=== PATIENT | female | born 1945 | race Caucasian/White ===

== ENCOUNTER → 2023-08-29 12:43 | Outpatient (REF) | payer OTHER, SELFPAY | LOC: RAD 12:43 | PROVIDERS: ATTENDING PHYSICIAN Surgery Vascular Surgery; FAMILY PHYSICIAN Family Medicine | DX: I77.3 Arterial fibromuscular dysplasia (principal) | CPT/HCPCS: 74174; Q9967 ==

== ENCOUNTER → 2024-03-10 11:00 | Outpatient (REF) | payer OTHER, SELFPAY | LOC: WDC 11:00 | PROVIDERS: ATTENDING PHYSICIAN Family Medicine | DX: Z12.31 Encounter for screening mammogram for malignant neoplasm of breast (principal) | CPT/HCPCS: 77063; 77067 ==

== ENCOUNTER → 2024-04-21 10:33 | Outpatient (REF) | payer OTHER, SELFPAY | LOC: RAD 10:33 | PROVIDERS: ATTENDING PHYSICIAN Internal Medicine Rheumatology; FAMILY PHYSICIAN Family Medicine | DX: E55.9 Vitamin D deficiency, unspecified (principal); M47.816 Spondylosis without myelopathy or radiculopathy, lumbar region; M81.0 Age-related osteoporosis without current pathological fracture | CPT/HCPCS: 77080 ==

== ENCOUNTER 2024-06-19 06:59 | Day surgery (SDC) | payer OTHER, SELFPAY ==
[2024-06-19 07:34] VITALS: BP 128/67
[2024-06-19 07:43] VITALS: BP 128/67
[2024-06-19 08:02] VITALS: BMI 26.7
[2024-06-19 08:15] LABS: Hematocrit 42.8 % (37.0-47.0); Hemoglobin 14.3 g/dL (12.0-16.0); Mean Corp Hgb Conc. 33.4 g/dL (33.0-37.0); Mean Corpuscular Hgb 31.4 pg (27.0-31.0); Mean Corpuscular Volume 94.1 fL (81.0-99.0); Mean Platelet Volume 9.4 fL (7.4-10.4); Platelet Count 278 10^3/uL (130-400); Red Blood Cell Count 4.55 10^6/uL (4.20-5.40); Red Cell Dist. Width 13.6 % (11.5-14.5); White Blood Cell Count 19.5 10^3/uL (4.8-10.8)
--- NOTE | 2024-06-19 08:41 | W.SUR.PREOP ---
Pre-Operative Surgical Note
-
I have examined this patient prior to the performance of the scheduled procedure.
The patient's condition is unchanged from the time of the current History and
Physical and the patient is able to undergo the scheduled procedure.
[2024-06-19 08:44] LABS: APTT 25.7 Sec (23.4-35.0); INR 0.85; PT 11.9 Sec (11.4-14.6)
--- NOTE | 2024-06-19 09:34 | OR.RPT ---
Operative Report
Operative Report
Date of Operation: 06/19/2024
Pre Op Diagnosis:
1.) jaw claudication
2.) elevated inflammatory markers
3.) concern for temporal arteritis
Post Op Diagnosis:
1.) jaw claudication
2.) elevated inflammatory markers
3.) concern for temporal arteritis
Procedure: BILATERAL temporal artery biopsy
Surgeon: Frank Wolf III, MD
[employer]: Bong Jeffries MD PhD, PGY2
Anesthesia: Sedation/local
Complications: None
Estimated Blood Loss: Less than 10 cc
History and Indications for Procedure: 78-year-old female with symptom constellation raising concern for temporal arteritis. We were asked to provide a temporal artery biopsy.
Procedure in Detail: Jessie Guillen was correctly identified and placed supine on the operating table. After adequate induction of anesthesia, the bilateral temporal pulses were marked and then the temporal regions were prepped and draped in the
usual sterile fashion. Preoperative antibiotics were administered. A time-out procedure was performed with the nursing and anesthesia staff confirming the patient's identity as well as nature and bilaterality of the procedure. Incisions were made
over the marked temporal pulses bilaterally. Careful sharp dissection and electrocautery were used to dissect down to the temporal arteries bilaterally. Adequate length of specimen was then sharply dissected out and the proximal and distal arteries
were ligated with silk ties and small metal clips. The intervening segment of each artery was then removed after ligating the proximal and distal ends. Each artery segment was identified appropriately according to laterality and then passed off to
the back table to be sent to pathology individually. Hemostasis was then achieved within the wound beds bilaterally. The wounds were irrigated with warm saline solution. The wounds were then closed in layers and skin glue was applied. The patient
tolerated the procedure well and was taken to the recovery room in good condition.
Attestation: I was present and responsible for the entire procedure.
Signed:
Frank Wolf III, MD
[facility] Vascular Surgery
[phone] (higk)
[2024-06-19 09:40] VITALS: BP 115/73; BP 128/67
[2024-06-19 09:43] VITALS: BP 115/73
[2024-06-19 09:45] VITALS: BP 128/64
--- NOTE | 2024-06-19 09:45 | W.IMMPOSTOP ---
Surgical Immed Post Op Note
-
Primary Surgeon: Dr. Frank Wolf III, MD
Assisting Surgeon: Bong Jeffries MD, PhD (PGY-2)
Pre-op Diagnosis: Suspected temporal arteritis
Post-op Diagnosis: Suspected temporal arteritis
Procedure Performed: Bilateral temporal artery biopsy
Anesthesia Type: MAC
Specimen / Cultures: Right and left temporal artery specimens
Estimated Blood Loss: 10cc
Complications: None
Operative Findings: The patient was brought to the OR, prepped and draped in usual sterile fashion. Doppler was initially used to identify the course of the temporal artery bilaterally, this course was marked at the skin level. Local anesthetic was
injected near the incision sites bilaterally. Incisions were made and a combination of electrocautery and sharp dissection was used to expose the temporal artery bilaterally. Silk ties and small clips were used to isolate and ligate the artery. A
~2cm segment of artery was excised bilaterally. Wound beds were irrigated, hemostasis ensured, and the wounds were closed with 3-0 and 4-0 sutures and skin glue on the surface. The patient was transported to the PACU in stable condition.
[2024-06-19 10:11] VITALS: BP 126/67
== END 2024-06-19 11:11 | disposition home or self-care (01) ==
LOC: CATH 06:59
PROVIDERS: ATTENDING PHYSICIAN Surgery Vascular Surgery; FAMILY PHYSICIAN Family Medicine
DX: R51.9 Headache, unspecified (principal); I73.9 Peripheral vascular disease, unspecified; Z79.890 Hormone replacement therapy; Z79.52 Long term (current) use of systemic steroids; Z79.899 Other long term (current) drug therapy; N18.31 Chronic kidney disease, stage 3a
CPT/HCPCS: 37609; 88305; 85027; 85610; 85730; 88313; 93005

== ENCOUNTER → 2024-08-25 10:31 | Outpatient (REF) | payer OTHER, SELFPAY | LOC: RAD 10:31 | PROVIDERS: ATTENDING PHYSICIAN Surgery Vascular Surgery; FAMILY PHYSICIAN Family Medicine | DX: I72.2 Aneurysm of renal artery (principal) | CPT/HCPCS: 74174; Q9967 ==

== ENCOUNTER → 2024-10-20 10:41 | Outpatient (REF) | payer OTHER, SELFPAY | LOC: RAD 10:41 | PROVIDERS: ATTENDING PHYSICIAN Specialist; FAMILY PHYSICIAN Family Medicine | DX: M25.552 Pain in left hip (principal) | CPT/HCPCS: 73502 ==

== ENCOUNTER 2024-12-06 23:22 | Inpatient (IN) | payer OTHER, SELFPAY ==
[2024-12-06 20:42] VITALS: BP 138/84
[2024-12-06 21:00] VITALS: BP 133/71
[2024-12-06 21:04] VITALS: BMI 26.5
[2024-12-06 21:34] LABS: % Basophils 0.6 % (0-2); % Eosinophils 0.1 % (0-6); % Immature Granulocytes 0.7 % (0-0.5); % Lymphocytes 6.6 % (20.5-51.1); % Monocytes 6.9 % (1.7-9.3); % Neutrophils 85.1 % (42.2-75.2); Absolute Basophils 0.2 10^3/uL (0-0.2); Absolute Immature Granulocytes 0.2 10^3/uL (0-0.05); Absolute Lymphocytes 2.1 10^3/uL (1.2-3.4); Absolute Monocytes 2.2 10^3/uL (0.1-0.6); Absolute Neutrophils 27.5 10^3/uL (1.4-6.5); Hemoglobin 15.5 g/dL (12.0-16.0); Mean Corpuscular Volume 91.7 fL (81.0-99.0); Mean Platelet Volume 10.1 fL (7.4-10.4); Nucleated Red Blood Cells % 0 %; Platelet Count 129 10^3/uL (130-400); Red Blood Cell Count 4.69 10^6/uL (4.20-5.40); Red Cell Dist. Width 12.5 % (11.5-14.5); White Blood Cell Count 32.3 10^3/uL (4.8-10.8)
[2024-12-06] MEDS: NSS 1000 IV (21:35)
--- NOTE | 2024-12-06 21:40 | ED.GENMED ---
History of Present Illness
General
Chief Complaint: Abdominal Symptoms
Source: patient and family
Time Seen by Provider: 12/06/24 21:05
History of Present Illness
History of Present Illness:
This is 78-year-old female who presents with 3 days of vomiting. Patient states she was vomiting mostly in the evening. She is not sure what caused it but thought maybe she just had a GI bug. Today however she started with right flank pain.
Family/friend states that she seemed a little fatigued and was trying to drink fluids. Family states that they were trying to encourage oral intake of water. Patient denies dysuria.
Past History
Past History
ED Past Medical History: HTN and Other (Cataracts, skin cancer, temporal arteritis)
ED Past Surgical History: Gynecological
Social History
Tobacco: Non-smoker
Personal:
Living: with family
Phy Exam
Physical Exam
Physical Exam:
CONSTITUTIONAL Patient alert and oriented to person, place and time. Well-appearing. Vital signs reviewed.
HEAD atraumatic, normocephalic.
EYES eyelids normal to inspection, Extraocular muscles intact, Conjunctiva normal, Sclera normal.
NECK normal range of motion, Trachea midline, no jugular venous distention.
RESPIRATORY CHEST No respiratory distress noted, Chest expansion equal, Bilateral breath sounds clear.
CARDIOVASCULAR regular rate and rhythm, Heart sounds normal.
ABDOMEN abdomen nontender, Bowel sounds normal. No distention.
BACK normal inspection, no obvious deformities
UPPER EXTREMITY range of motion normal, Motor strength normal, no cyanosis, no edema.
LOWER EXTREMITY range of motion normal, Motor strength normal, no cyanosis, no edema.
NEURO Speech normal, No focal motor deficits, Aye coma scale 15, Memory normal, Cranial Nerves intact to screening exam.
SKIN skin warm, dry, and normal in color.
Course
Orders/Labs/Results
Orders:
Orders
12/06/24 20:51
IV Insert/Care/Rem.- Treatment PRN
12/06/24 21:01
Basic Metabolic Panel Urgent
Complete Blood Count/With Diff Urgent
Lipase Urgent
12/06/24 21:27
CT Abd/pel Without Iv Or Oral Urgent
Comment:
Reason For Exam: R flank pain, vomiting
0.9% Sodium Chloride 1000 ml [Nss] 1,000 ml IV BOLUS
12/06/24 21:31
Comprehensive Metabolic Panel Urgent
Urinalysis Reflex To Culture Urgent
Date Specimen was Collected: 12/06/24
Time Specimen was Collected: 20:51
Urine Microscopic Reflex Cult Urgent
Urine Culture Urgent
MAGDALENO Source: U
Specimen Description:
Date Specimen was Collected: 12/06/24
Time Specimen was Collected: 20:51
Abnormal Lab Results
12/06/24 12/06/24
21:01 21:31
WBC 32.3 H 10^3/uL
(4.8-10.8)
MCH 33.0 H pg
(27.0-31.0)
Plt Count 129 L 10^3/uL
(130-400)
Abs Immat Gran (auto) 0.2 H 10^3/uL
(0-0.05)
Absolute Neuts (auto) 27.5 H 10^3/uL
(1.4-6.5)
Absolute Monos (auto) 2.2 H 10^3/uL
(0.1-0.6)
Immature Gran % 0.7 H %
(0-0.5)
Neutrophils % 85.1 H %
(42.2-75.2)
Lymphocytes % 6.6 L %
(20.5-51.1)
Chloride 111 H mmol/L
(98-107)
BUN 30 H mg/dl 27 H mg/dl
(7-17) (7-17)
Creatinine 1.1 H mg/dL
(0.6-1.0)
Glucose 118 H mg/dl 112 H mg/dl
(70-99) (70-99)
AST 70 H U/L
(14-36)
ALT 86 H U/L
(0-35)
Total Protein 6.0 L g/dl
(6.3-8.2)
Lipase 604 H U/L
(23-300)
Urine Ketones 2+ A
(Negative)
Ur Occult Blood Reflex 4+ A
(Negative)
Leukocyte Esterase Rfl 2+ A
(Negative)
Urine RBC 11-15 A /HPF
(0-2)
Urine Bacteria (Reflex) Many A
(Negative)
Urine Albumin (Reflex) 2+ A
(Neg - Trace)
12/06/24 21:01
12/06/24 21:31
Vital Signs
Initial and Last Documented VS:
Initial Vital Signs
Temp Pulse Resp BP Pulse Ox
98 F 95 20 138/84 97
12/06/24 20:42 12/06/24 20:42 12/06/24 20:42 12/06/24 20:42 12/06/24 20:42
Last Documented Vital Signs
Temp Pulse Resp BP Pulse Ox
98 F 72 13 130/71 97
12/06/24 20:42 12/06/24 22:30 12/06/24 22:30 12/06/24 22:00 12/06/24 22:30
MDM/Problems Addressed
Differential Diagnosis Includes:
Pyelonephritis, gastroenteritis, colitis, cystitis
MDM/Problems Addressed:
Vomiting, liver mass
*Pulse Oximetry
Patient hypoxic: no
*Critical Care Note
Total Time (30-74mins, 75-104mins- exclusive of procedures): Not Applicable
Data Reviewed
Source: patient and family
Further Testing Considered But Not Given:
Considered contrast but initial question was whether or not she could have obstructive uropathy.
Patient Management
Discussion with other providers: Hospitalist
Escalation/DeEscalation of care consider admission/obs:
78-year-old female who presents with intractable vomiting over the last couple days and now flank pain. Found to have a significant leukocytosis. Question etiology. She has been on steroids for temporal arteritis. Also on infusion weekly.
Question whether this is a hematologic disorder versus marginalization from vomiting and dehydration versus related to steroids. Given her age and findings, admit for reassessment. CT does show a possible liver mass. May need repeat study
inclusive of contrast
ED Attending Note
-
Portions of this chart may have been created with voice recognition software.� Occasional wrong word or��sound alike� substitutions may have occurred due to the inherent limitations of voice recognition software.
Discharge Plan
Departure
Patient Disposition: Admit
Date of Disposition: 12/06/24
Time of Disposition: 22:22
Admit to: Med/Surg
Presentation/result/management discussed w/ accepting MD/DO: Hospitalist
Discharge Problem:
Leukocytosis, Vomiting, Liver mass, Dehydration
Prescriptions:
No Action
levothyroxine 137 mcg Tablet
137 mcg PO DAILY
calcium carbonate [Calcium 600] 600 mg calcium (1,500 mg) Tablet
600 mg PO BID
cholecalciferol (vitamin D3) [Vitamin D3] 25 mcg (1,000 unit) Tablet
75 mcg PO DAILY
Prolia 60 mg/mL Syringe
60 mg SC [id number]
prednisone 50 mg Tablet
50 mg PO DAILY
rosuvastatin 5 mg Tablet
5 mg PO DAILY
Referrals:
Kathy Gutierres MD [Family Provider] -
Interventions
Interventions:
*Risk Screen - Suicide Last Done: 12/06/24 20:44
*General Assessment Last Done: 12/06/24 20:44
*Neglect/Abuse Screening Last Done: 12/06/24 21:04
*ED- Fall Risk Assessment Last Done: 12/06/24 21:04
*ED COVID-19 Vaccine History Last Done: 12/06/24 20:44
JH-[id number]-[id number] Assessment Last Done: 12/06/24 21:04
Discharge Date and Time
Print Language: WELSH
[2024-12-06 21:45] LABS: Urine Albumin 2+ (Neg - Trace); Urine Bilirubin Negative (Negative); Urine Character Slightly Cloudy (Clear); Urine Color Yellow; Urine Glucose Negative (Negative); Urine Ketone 2+ (Negative); Urine Leukocyte 2+ (Negative); Urine Nitrite Negative (Negative); Urine Occult Blood 4+ (Negative); Urine Urobilinogen Negative (Neg - 1+)
[2024-12-06 21:53] LABS: Urine Bacteria Many (Negative)
[2024-12-06 21:54] LABS: Blood Urea Nitrogen 30 mg/dl (7-17); Carbon Dioxide 24 mmol/L (22-30); Chloride 107 mmol/L (98-107); Estimated Creatinine Clearance 36 ml/min; Glucose 118 mg/dl (70-99); Lipase 604 U/L (23-300); Sodium 136 mmol/L (135-145); eGFR 51.43
[2024-12-06 22:00] VITALS: BP 130/71
[2024-12-06 22:00] LABS: ALT (SGPT) 86 U/L (0-35); AST (SGOT) 70 U/L (14-36); Alkaline Phosphatase 60 U/L (38-126); Blood Urea Nitrogen 27 mg/dl (7-17); Calcium 8.4 mg/dl (8.4-10.2); Carbon Dioxide 22 mmol/L (22-30); Chloride 111 mmol/L (98-107); Estimated Creatinine Clearance 40 ml/min; Glucose 112 mg/dl (70-99); Potassium 3.7 mmol/L (3.5-5.1); Sodium 138 mmol/L (135-145); Total Bilirubin 0.8 mg/dl (0.2-1.3); eGFR 57.66
--- NOTE | 2024-12-06 22:34 | HPS.HSE ---
Family Physician
-
Family Physician: Kathy Gutierres
Chief Complaint
-
Abdominal pain
History of Present Illness
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
giant cell arteritis currently on prednisone taper as well as Actemra who presents to the emergency department with nausea vomiting and abdominal pain.
Patient reported that she has had 3 days of vomiting. She reports vomiting clear amount of material. No blood and no bowel. She denies any diarrhea. She reported that she has not been able to tolerate p.o. due to the vomiting for the last 3 days
and feels dehydrated. Today she started having abdominal pain that she localized to the right upper quadrant flank as well as the back. She denies any radiation. She denies any urinary symptoms. She denies any hematuria. Patient denied having
any fevers or chills. She denies any changes to the color of her stool or urine.
In the emergency department patient was afebrile, blood pressure was 130/70 with a pulse of 73 she was satting 96% on room air.
She had leukocytosis to 32,000 with otherwise hemoglobin was normal and platelet count was 130. Electrolytes were all normal. BUN/creatinine were stable. Total bilirubin was normal at 0.8. AST was elevated to 70 ALT 88 and lipase was elevated to
600. UA shows some bacteria and WBCs but appears contaminated with squamous cells.
She had a CT stone search (non-contrast) without finding any stone. There was a 4.5 x 2.6 cm indeterminate low-attenuation lesion in the left lobe of the liver segment 3. Right tiny hiatal hernia, no bowel obstruction or hydronephrosis. Extensive
diverticulosis with underdistended colon. Gallbladder appeared unremarkable, stable appearing aneurysmal dilation of the celiac artery measuring 1.2 cm, grossly similar right renal artery aneurysm.
Medical History
Past Medical History
Past Medical History: Reports Cancer (History of basal cell cancer of the skin), HTN, Hypercholesterolemia and Hypothyroidism
Additional Past Medical History:
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
Giant cell arteritis
Status post radioactive iodine treatment for hypothyroidism in her 30s
Lymphocytosis, flow cytometry 02/2020 suggestive of reactive process
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
Social History
Tobacco: Former Smoker
Alcohol: Occasional
Drug: None
Personal:
Living: Alone
Employment: Retired
Family History
Family History: Not pertinent
Allergies / Home Medications
Allergies reflects when Allergies were last updated in [facility].
Home Medications with original date entered in [facility]
Allergy/Medication List:
Allergies
Allergy/AdvReac Type Severity Reaction Status Date / Time
amoxicillin [From Augmentin] Allergy Severe Hives Verified 12/06/24 20:46
clavulanic acid Allergy Severe Hives Verified 12/06/24 20:46
[From Augmentin]
Fragrances Allergy Severe Throat Uncoded 06/19/24 07:21
closes
Sulfa Allergy Severe Throat Uncoded 06/19/24 07:21
closes,
swelling
with eye
drops
sulphur Allergy Severe Throat Uncoded 06/19/24 07:22
closes up,
head ache
with
airborne
exposure
Home Medications
calcium carbonate (Calcium 600) 600 mg PO BID 06/18/24
cholecalciferol (vitamin D3) 25 mcg (1,000 unit) tablet (Vitamin D3) 75 mcg PO DAILY 06/18/24
denosumab 60 mg/mL subcutaneous syringe (Prolia) 60 mg SC [id number] 06/18/24
levothyroxine 137 mcg tablet 137 mcg PO DAILY 06/18/24
rosuvastatin 5 mg tablet 5 mg PO DAILY 06/19/24
prednisone 1 mg tablet 3 mg PO DAILY 12/06/24
Review of Systems
-
Constitutional: Reports No Symptoms
EENT: Reports No Symptoms
Respiratory: Reports No Symptoms
Cardiac: Reports No Symptoms
Abdomen/GI: Reports Abdominal Pain, Nausea and Vomiting
: Reports No Symptoms
Musculoskeletal: Reports No Symptoms
Skin: Reports No Symptoms
Neurological: Reports No Symptoms
Endocrine: Reports No Symptoms
Hematologic/Lymphatic: Reports No Symptoms
Psych: Reports No Symptoms
Physical Exam
Vital Signs
Vital Signs
Temp Pulse Resp BP Pulse Ox
98 F 73 18 130/71 96
12/06/24 20:42 12/06/24 22:00 12/06/24 22:00 12/06/24 22:00 12/06/24 21:48
Physical Exam
General: Well Developed, Well Nourished and No Apparent Distress
HEENT: NormoCephalic, Moist mucous membranes and Atraumatic
Respiratory: Clear
Cardiac: S1/S2 and Regular Rhythm; No Murmur or Rub
GI: Soft, Non Tender, Non Distended and Normal Bowel Sounds; No Organomegaly
Rectal: Deferred by Provider
Genito-urinary: No costovertebral tender
Musculoskeletal: No Clubbing, No Cyanosis and No Edema
Skin: No Rash
Neuro: Nonfocal/grossly intact
Laboratory Results
-
12/06/24 21:01
12/06/24 21:31
Laboratory Results
Total Bilirubin 0.8 mg/dl (0.2-1.3) 12/06/24 21:31
AST 70 U/L (14-36) H 12/06/24 21:31
ALT 86 U/L (0-35) H 12/06/24 21:31
Alkaline Phosphatase 60 U/L (38-126) 12/06/24 21:31
Lipase 604 U/L (23-300) H 12/06/24 21:01
Data Reviewed
-
CT Scan: Report Reviewed by me
Lab Data: Labs Reviewed by me
Old Records: Reviewed
Impression/Plan
-
IMPRESSION:
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 Exam
with mild RUQ tenderness to palpation without peritoneal signs. Labs notable for leukocytosis to 32, AST 70, ALT 86, lipase 604. Total bilirubin is normal. CT non-contrast negative for stone but shows a 4.5 x 2.6 cm low attenuation lesion of the
left lobe of the liver. No ascites noted. Diverticulosis noted. No history of liver disease. Reports occasional etoh
PLAN:
Liver mass - The mass is new compared to CT scan in august 2024 and likely associated with LFT changes and possible lipase elevation. T bili is normal.
- admit to med/surg
- will obtain CT with IV contrast to evaluate mass, pancrease, and diverticulosis
- likely will need MRI if CT does not suggest hemangioma
- check AFP, trend lfts
- clear liquid diet for now regarding pancreatitis
- pain control, IV fluids
- antiemetics
- GI consultation
Leukocytosis - WBC 32, on prednisone taper. No fever, urinary or respiratory symptoms. Reactive vs leukomoid reaction than a likely infection
- imaging as above
- blood cultures if febrile
- peripheral smear
- hold abx for now
GCA
- prednisone 3mg daily x 1 week
Hypothyroid
- levothyroxine 137 mcg daily
DVT PPX - lovenox sq
Code status - Full Code
[2024-12-06] MEDS: TORADOL 15 MG IV (23:06)
[2024-12-07 01:27] VITALS: BP 142/88; BMI 26.3
--- NOTE | 2024-12-07 02:10 | PTCARENOTE ---
Pt brought to unit via stretcher. Pt walked from stretcher to bed. Pt was oriented to room. Pt AAOx3, VSS. Call stokes within reach, plan of care on going.
[2024-12-07] MEDS: LR 1000 IV ×2 (02:23→13:27)
[2024-12-07 06:00] VITALS: BMI 26.7
[2024-12-07] MEDS: SYNTHROID 137 MCG PO (06:10)
[2024-12-07 06:40] LABS: Hematocrit 38.3 % (37.0-47.0); Hemoglobin 13.4 g/dL (12.0-16.0); Mean Corpuscular Hgb 32.8 pg (27.0-31.0); Mean Corpuscular Volume 93.9 fL (81.0-99.0); Mean Platelet Volume 10.4 fL (7.4-10.4); Platelet Count 113 10^3/uL (130-400); Red Blood Cell Count 4.08 10^6/uL (4.20-5.40); Red Cell Dist. Width 12.5 % (11.5-14.5); White Blood Cell Count 22.3 10^3/uL (4.8-10.8)
[2024-12-07 06:59] LABS: ALT (SGPT) 74 U/L (0-35); AST (SGOT) 50 U/L (14-36); Albumin 3.2 g/dl (3.5-5.0); Alkaline Phosphatase 75 U/L (38-126); Blood Urea Nitrogen 24 mg/dl (7-17); Calcium 8.1 mg/dl (8.4-10.2); Carbon Dioxide 24 mmol/L (22-30); Chloride 111 mmol/L (98-107); Direct Bilirubin 0.1 mg/dl (0.0-0.4); Estimated Creatinine Clearance 39 ml/min; Glucose 75 mg/dl (70-99); Magnesium 2.1 mg/dl (1.6-2.3); Potassium 3.6 mmol/L (3.5-5.1); Sodium 139 mmol/L (135-145); Total Bilirubin 0.7 mg/dl (0.2-1.3); Total Protein 5.1 g/dl (6.3-8.2); eGFR 57.66
[2024-12-07 07:05] VITALS: BP 147/83
[2024-12-07] MEDS: DELTASONE 3 MG PO (08:17)
[2024-12-07] MEDS: CRESTOR 5 MG PO (08:17)
--- NOTE | 2024-12-07 08:22 | W.PN.HOSP.TC ---
Today's Communication/Plan
-
Liver biopsy in a.m.
Assessment / Plan
Assessment / Plan
Impression:
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 Exam
with mild RUQ tenderness to palpation without peritoneal signs. Labs notable for leukocytosis to 32, AST 70, ALT 86, lipase 604. Total bilirubin is normal. CT non-contrast negative for stone but shows a 4.5 x 2.6 cm low attenuation lesion of the
left lobe of the liver. No ascites noted. Diverticulosis noted. No history of liver disease. Reports occasional alcohol use
Repeat CT abdomen pelvis with IV contrast:
1. Hypoattenuating multi lobulated lesion within the left hepatic lobe (segment 3), measuring 4.7 x 3.8 x 2.3 cm, which may represent hepatic abscess or necrotic hepatic tumor.
2. Nonopacification of a peripheral portal branch within the right anterior hepatic lobe, best seen on series 201 images 14-16, likely representing peripheral portal venous thrombosis.
3. 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 Unchanged focal SMA plaque or dissection.
4. Moderate colonic diverticulosis without evidence of diverticulitis
Discussed with IR, for liver biopsy tomorrow.
Assessment/plan:
Liver mass -
The mass is new compared to CT scan in august 2024 and likely associated with LFT changes and possible lipase elevation. T bili is normal.
Advance diet,
- GI consultation
Repeat CT abdomen pelvis with IV contrast:
1. Hypoattenuating multi lobulated lesion within the left hepatic lobe (segment 3), measuring 4.7 x 3.8 x 2.3 cm, which may represent hepatic abscess or necrotic hepatic tumor.
2. Nonopacification of a peripheral portal branch within the right anterior hepatic lobe, best seen on series 201 images 14-16, likely representing peripheral portal venous thrombosis.
3. 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 Unchanged focal SMA plaque or dissection.
4. Moderate colonic diverticulosis without evidence of diverticulitis
Discussed with IR, for liver biopsy tomorrow.
n.p.o. after midnight
Peripheral portal vein thrombosis
Patient with history of bruises while on baby aspirin
Will wait for liver biopsy
Considering hem consult
Leukocytosis -
, on prednisone taper. No fever, urinary or respiratory symptoms. Reactive vs leukomoid reaction than a likely infection
- imaging as above
- blood cultures if febrile
- peripheral smear
- hold abx for now
GCA
- prednisone 3mg daily x 1 week
Hypothyroid
- levothyroxine 137 mcg daily
CODE STATUS: Full code
DVT prophylaxis: Lovenox
Diet: LRD, NPO after midnight
Disposition: liver biopsy in am
Total time spent on today's encounter was 65 minutes which included time spent in counseling the patient/family regarding diagnosis and treatment plan as listed above, goals of care, and symptom management. Case was discussed with nursing staff,
specialists, and care coordinators/case management. All labs and imaging personally reviewed by me. Remainder the time spent in detailed review of previous records, lab data, imaging, and other medical provider documentation.
Anticipated Discharge: 24 - 48 hours
Subjective/Interval History
-
Date of Service: December 07, 2024
Patient seen and examined at bedside, discussed CT results with the patient.
Patient stated that abdominal pain improved and she would like to try advance diet.
Otherwise patient denies any chest pain or shortness of breath.
Objective Data
-
Labs:
Laboratory Results
12/06/24 12/06/24 12/07/24
21:01 21:31 05:51
WBC 32.3 H 22.3 H
Hgb 15.5 13.4
Hct 43.0 38.3
Plt Count 129 L 113 L
Sodium 136 138 139
Potassium 3.7 3.6
Chloride 107 111 H 111 H
Carbon Dioxide 24 22 24
BUN 30 H 27 H 24 H
Creatinine 1.1 H 1.0 1.0
Glucose 118 H 112 H 75
Calcium 9.0 8.4 8.1 L
Total Bilirubin Cancelled 0.8 0.7
AST Cancelled 70 H 50 H
ALT Cancelled 86 H 74 H
Alkaline Phosphatase Cancelled 60 75
Vital Signs:
Vital Signs
Temp Pulse Resp BP Pulse Ox
98.3 F 77 18 147/83 95
12/07/24 07:05 12/07/24 07:05 12/07/24 07:05 12/07/24 07:05 12/07/24 07:05
Physical Exam
-
General: Well Developed, Well Nourished, No Apparent Distress and Comfortable
HEENT: Normocephalic, Atraumatic, Moist Mucous Membranes, No Ptosis, PERRLA and Nose Appears Normal
Respiratory: Clear to Auscultation and Non Labored Respirations
Cardiac: Regular Rhythm and S1/S2
Breast: Deferred by me
GI: Soft, Nontender, Nondistended and Normal Bowel Sounds
Genito-urinary: No Costovertebral Tender
Musculoskeletal: No Clubbing, No Cyanosis and No Edema
Skin: Warm
Neuro: Awake, Alert, Oriented, AO x 3 and No Motor Deficits
Psych: Calm
Data Reviewed
-
Diagnostic Radiology: Image personally visualized and interpreted and Report Reviewed by me
CT Scan: Image personally visualized and interpreted and Report Reviewed by me
Ultrasound: Image personally visualized and interpreted and Report Reviewed by me
MRI: Image personally visualized and interpreted and Report Reviewed by me
Medical Tests (Nuc Med, Echo etc): Image personally visualized and interpreted and Report Reviewed by me
Labs: Labs Reviewed by me
Old Records: Reviewed
[2024-12-07] MEDS: ZOFRAN 4 MG IV ×2 (11:20→17:25)
--- NOTE | 2024-12-07 12:05 | CON.GI ---
Consultation
-
Date/Time Consultation Requested: 12/07/24
Date/Time Consultation Performed: 12/07/24
Requesting Provider:
Performing Provider:
Reason for Consultation: vomiting
Medical History
Chief Complaint / HPI
Chief Complaint: vomiting
History of Present Illness:
78-year-old female with history of hypertension, high cholesterol, hypothyroidism, temporal arteritis presenting with complaints of nausea and vomiting starting last Saturday. She was doing well up until then. She had tomato mozzarella for snack in
the afternoon and then started having nausea and vomiting episodes, multiple times every time she would eat something and was progressively getting worse and that is what brought her into the emergency room. She reports that in September when she got
the Actemra, she had 1 day of vomiting but that subsided and did not happen again with the other dose of Actemra. She is recent diagnosis of giant cell arteritis, on prednisone . She reports having mid back pain yesterday but no abdominal pain.
No heartburn regular basis, no trouble swallowing. No constipation, diarrhea, blood in the stool or black stool. No regular NSAID use. No loss of appetite, unintentional weight loss.
In the emergency room, she was noted to have a leukocytosis with white count of 32.3 with normal hemoglobin, mild elevation in AST and ALT with normal bilirubin and alkaline phosphatase. Lipase mildly elevated. She had CT scan of the abdomen and
pelvis with IV contrast that showed multiloculated hypoattenuated lesion measuring 4.7 x 2.3 x 3.8 cm and also nonopacification of peripheral branch of right portal vein concerning for thrombosis, normal-appearing gallbladder and bile ducts.
Pancreas is normal. 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 She had previous CT scans since 2021, most recent CT scan in August 2024 where fatty liver was noted.
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 Wolf.
Colonoscopy in [address] Rubio, hyperplastic polyps removed and diverticulosis noted.
Past Medical History
Past Medical History: HTN, Hypercholesterolemia, Hypothyroidism and Other (Temporal arteritis, osteoporosis)
Past Surgical History: Gynecological
Social History
Tobacco: Former Smoker
Alcohol: Occasional
Allergies / Home Medications
Allergy/AdvReac Type Severity Reaction Status Date / Time
amoxicillin [From Augmentin] Allergy Severe Hives Verified 12/06/24 20:46
clavulanic acid Allergy Severe Hives Verified 12/06/24 20:46
[From Augmentin]
Fragrances Allergy Severe Throat Uncoded 06/19/24 07:21
closes
Sulfa Allergy Severe Throat Uncoded 06/19/24 07:21
closes,
swelling
with eye
drops
sulphur Allergy Severe Throat Uncoded 06/19/24 07:22
closes up,
head ache
with
airborne
exposure
�Medication �Instructions �Recorded
calcium carbonate (Calcium 600) 600 mg PO BID 06/18/24
cholecalciferol (vitamin D3) 25 75 mcg PO DAILY 06/18/24
mcg (1,000 unit) tablet (Vitamin
D3)
denosumab 60 mg/mL subcutaneous 60 mg SC [id number] 06/18/24
syringe (Prolia)
levothyroxine 137 mcg tablet 137 mcg PO DAILY 06/18/24
rosuvastatin 5 mg tablet 5 mg PO DAILY 06/19/24
prednisone 1 mg tablet 3 mg PO DAILY 12/06/24
Review of Systems
-
All other systems: A 12 pt ROS was Negative except as stated above in HPI
Vital Signs
Temp Pulse Resp BP Pulse Ox
98.3 F 77 18 147/83 95
12/07/24 07:05 12/07/24 07:05 12/07/24 07:05 12/07/24 07:05 12/07/24 08:30
Physical Exam
Exam
Cardiac: S1/S2
GI: Soft and Tender (Tenderness on palpation of the epigastric area)
Neuro: AO x 3
Results
WBC 22.3 10^3/uL (4.8-10.8) H 12/07/24 05:51
Hgb 13.4 g/dL (12.0-16.0) 12/07/24 05:51
Hct 38.3 % (37.0-47.0) 12/07/24 05:51
MCV 93.9 fL (81.0-99.0) 12/07/24 05:51
Plt Count 113 10^3/uL (130-400) L 12/07/24 05:51
Absolute Neuts (auto) 27.5 10^3/uL (1.4-6.5) H 12/06/24 21:01
Sodium 139 mmol/L (135-145) 12/07/24 05:51
Potassium 3.6 mmol/L (3.5-5.1) 12/07/24 05:51
Chloride 111 mmol/L (98-107) H 12/07/24 05:51
Carbon Dioxide 24 mmol/L (22-30) 12/07/24 05:51
BUN 24 mg/dl (7-17) H 12/07/24 05:51
Creatinine 1.0 mg/dL (0.6-1.0) 12/07/24 05:51
Calcium 8.1 mg/dl (8.4-10.2) L 12/07/24 05:51
Total Bilirubin 0.7 mg/dl (0.2-1.3) 12/07/24 05:51
AST 50 U/L (14-36) H 12/07/24 05:51
ALT 74 U/L (0-35) H 12/07/24 05:51
Alkaline Phosphatase 75 U/L (38-126) 12/07/24 05:51
Lipase 604 U/L (23-300) H 12/06/24 21:01
Diagnostic Image Results:
Prior GI Procedures:
EGD:
Colonoscopy:
Assessment / Plan
-
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
vomiting since last Saturday, leukocytosis noted, likely related to steroids but also noted on CAT scan was hypoattenuating multilobular lesion in the left attic lobe measuring 4.7 x 3.8 x 2.3 cm, rule out hepatic abscess versus necrotic tumor, mild
elevation in transaminases but otherwise unremarkable liver testing.
No previous history of liver disease, no significant alcohol use.
- New hepatic lesion noted on recent CT scan, multiple other CT scans in the past did not show any hepatic lesions except fatty liver
Patient needs MRI with contrast to evaluate this hepatic lesion further.
AFP is pending.
Will order MRI/MRCP to evaluate this lesion in the liver.
-Unclear etiology nausea and vomiting
For now clear liquid diet, okay to take Zofran as needed.
Will follow-up on the imaging.
Given recent steroids, we will put her on pantoprazole 40 mg IV twice daily.
Will follow-up
-
-
Thank you for consultation and allowing me to participate in the patient's care. Please call the monotyper GI physician during the after hours with any questions or concerns.
[2024-12-07] MEDS: PROTONIX IV 40 MG IV ×2 (13:27→20:02)
[2024-12-07] MEDS: NSS (PRESERVATIVE FREE) 10 ML IV ×2 (13:27→20:02)
--- NOTE | 2024-12-07 14:39 | CM ---
patient admitted from home with pancreatitis. She reports she lives alone. She is independent in home and community. She has no history with [facility]NA or SNF. NO DME.
PCP Sabi Gutierres
Pharmacy: [facility]
plan; HOme no needs
[2024-12-07 15:00] VITALS: BP 114/61
[2024-12-07] MEDS: LOVENOX 40 MG SC (17:25)
[2024-12-07 19:02] LABS: AFP Male/Tumor Marker 2.92 ng/ml
[2024-12-07 23:20] VITALS: BP 104/64
[2024-12-08] MEDS: LR 1000 IV ×2 (00:11→09:15)
[2024-12-08] MEDS: SYNTHROID 137 MCG PO (06:23)
[2024-12-08 06:35] VITALS: BMI 27.1
[2024-12-08 07:05] VITALS: BP 135/80
[2024-12-08 07:27] LABS: CA 19-9 14 U/mL (<=35)
[2024-12-08 07:41] LABS: INR 1.07; PT 14.2 Sec (11.4-14.6)
[2024-12-08 07:42] LABS: APTT 34.2 Sec (23.4-35.0)
[2024-12-08 07:46] LABS: Hematocrit 37.4 % (37.0-47.0); Hemoglobin 13.1 g/dL (12.0-16.0); Mean Corpuscular Hgb 33.3 pg (27.0-31.0); Mean Corpuscular Volume 95.2 fL (81.0-99.0); Red Blood Cell Count 3.93 10^6/uL (4.20-5.40); Red Cell Dist. Width 12.7 % (11.5-14.5); White Blood Cell Count 25.6 10^3/uL (4.8-10.8)
[2024-12-08 08:09] LABS: ALT (SGPT) 78 U/L (0-35); AST (SGOT) 50 U/L (14-36); Alkaline Phosphatase 100 U/L (38-126); Blood Urea Nitrogen 18 mg/dl (7-17); Calcium 7.9 mg/dl (8.4-10.2); Carbon Dioxide 24 mmol/L (22-30); Chloride 109 mmol/L (98-107); Estimated Creatinine Clearance 33 ml/min; Glucose 85 mg/dl (70-99); Potassium 4.3 mmol/L (3.5-5.1); Sodium 138 mmol/L (135-145); Total Bilirubin 0.8 mg/dl (0.2-1.3); eGFR 46.33
[2024-12-08] MEDS: PROTONIX IV 40 MG IV ×2 (08:10→20:33)
[2024-12-08] MEDS: DELTASONE 3 MG PO (08:14)
[2024-12-08] MEDS: NSS (PRESERVATIVE FREE) 10 ML IV ×2 (08:14→20:33)
[2024-12-08] MEDS: CRESTOR 5 MG PO (08:15)
[2024-12-08] MEDS: ULTRAM 50 MG PO (08:22)
--- NOTE | 2024-12-08 09:54 | W.PN.GI.CBS2 ---
Today's Communication / Plan
-
MRI MRCP
AFP pending
Diet after MRI completes
Assessment / Plan
-
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
vomiting since last Saturday, leukocytosis noted, likely related to steroids but also noted on CAT scan was hypoattenuating multilobular lesion in the left attic lobe measuring 4.7 x 3.8 x 2.3 cm, rule out hepatic abscess versus necrotic tumor, mild
elevation in transaminases but otherwise unremarkable liver testing.
No previous history of liver disease, no significant alcohol use.
Impression
- Abd pain with N/V
- New hepatic lesion noted on recent CT scan, multiple other CT scans in the past did not show any hepatic lesions except fatty liver
- Elevated LFTs
- Temporal arteritis
- On steroids
- HTN
- Hyperlipdemia
- Hypothyroidism
Recommendations
- MRI MRCP today to eval liver lesions
- C/w protonix BID
- Diet after MRI
- AFP pending
Will follow-up
Subjective
Subjective
Date of Service: December 08, 2024
She was ambulating around room talking to room mate today. She states abd pain is 4 out of 10 in intensity. Denies nausea/vomiting but has no appetite.
Objective
Data Reviewed
Laboratory Data:
Laboratory Results
12/08/24 06:17
12/08/24 06:17
Laboratory Results
PT 14.2 Sec (11.4-14.6) 12/08/24 06:17
INR 1.07 12/08/24 06:17
APTT 34.2 Sec (23.4-35.0) 12/08/24 06:17
Magnesium 2.1 mg/dl (1.6-2.3) 12/07/24 05:51
Total Bilirubin 0.8 mg/dl (0.2-1.3) 12/08/24 06:17
AST 50 U/L (14-36) H 12/08/24 06:17
ALT 78 U/L (0-35) H 12/08/24 06:17
Alkaline Phosphatase 100 U/L (38-126) 12/08/24 06:17
Lipase 604 U/L (23-300) H 12/06/24 21:01
Vital Signs and I&O:
Vital Signs
Temp Pulse Resp BP Pulse Ox
98.8 F 75 18 135/80 98
12/08/24 07:05 12/08/24 07:05 12/08/24 07:05 12/08/24 07:05 12/08/24 07:05
I&O
12/07/24 12/08/24 12/09/24
06:59 06:59 06:59
Intake Total 2160 / 2160
Balance 2160 / 2160
Physical Exam
Physical Exam
GEN: No acute distress, conversant, pleasant
HEENT: anicteric, extraocular movements intact, clear oropharynx without exudates
GI: soft, mildly -distended, not tender to palpation, normal active bowel sounds, no hepatosplenomegaly
EXT: warm, well perfused, trace edema bilaterally
NEURO: AAOx3, non-focal
[2024-12-08 09:58] LABS: Mean Platelet Volume 11.1 fL (7.4-10.4); Platelet Count 81 10^3/uL (130-400)
--- NOTE | 2024-12-08 10:16 | W.PN.HOSP.TC ---
Today's Communication/Plan
-
liver biopsy/ MRCP
Assessment / Plan
Assessment / Plan
Impression:
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 Exam
with mild RUQ tenderness to palpation without peritoneal signs. Labs notable for leukocytosis to 32, AST 70, ALT 86, lipase 604. Total bilirubin is normal. CT non-contrast negative for stone but shows a 4.5 x 2.6 cm low attenuation lesion of the
left lobe of the liver. No ascites noted. Diverticulosis noted. No history of liver disease. Reports occasional alcohol use
Repeat CT abdomen pelvis with IV contrast:
1. Hypoattenuating multi lobulated lesion within the left hepatic lobe (segment 3), measuring 4.7 x 3.8 x 2.3 cm, which may represent hepatic abscess or necrotic hepatic tumor.
2. Nonopacification of a peripheral portal branch within the right anterior hepatic lobe, best seen on series 201 images 14-16, likely representing peripheral portal venous thrombosis.
3. 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 Unchanged focal SMA plaque or dissection.
4. Moderate colonic diverticulosis without evidence of diverticulitis
Discussed with IR, for liver biopsy
GI recommending MRCP
Assessment/plan:
Liver mass -
The mass is new compared to CT scan in august 2024 and likely associated with LFT changes and possible lipase elevation. T bili is normal.
Advance diet,
- GI consultation
Repeat CT abdomen pelvis with IV contrast:
1. Hypoattenuating multi lobulated lesion within the left hepatic lobe (segment 3), measuring 4.7 x 3.8 x 2.3 cm, which may represent hepatic abscess or necrotic hepatic tumor.
2. Nonopacification of a peripheral portal branch within the right anterior hepatic lobe, best seen on series 201 images 14-16, likely representing peripheral portal venous thrombosis.
3. 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 Unchanged focal SMA plaque or dissection.
4. Moderate colonic diverticulosis without evidence of diverticulitis
Discussed with IR, for liver biopsy tomorrow.
n.p.o. after midnight
12/08
MRCP.
Liver biopsy today
Peripheral portal vein thrombosis
Patient with history of bruises while on baby aspirin
Will wait for liver biopsy
Considering heme consult
Leukocytosis -
, on prednisone taper. No fever, urinary or respiratory symptoms. Reactive vs leukomoid reaction than a likely infection
- imaging as above
- blood cultures if febrile
- peripheral smear
- hold off abx for now
GCA
- prednisone 3mg daily x 1 week
Hypothyroid
- levothyroxine 137 mcg daily
CODE STATUS: Full code
DVT prophylaxis: Lovenox
Diet: NPO
Disposition: liver biopsy/ MRCP
Total time spent on today's encounter was 65 minutes which included time spent in counseling the patient/family regarding diagnosis and treatment plan as listed above, goals of care, and symptom management. Case was discussed with nursing staff,
specialists, and care coordinators/case management. All labs and imaging personally reviewed by me. Remainder the time spent in detailed review of previous records, lab data, imaging, and other medical provider documentation.
Anticipated Discharge: > 48 hours
Subjective/Interval History
-
Date of Service: December 08, 2024
Patient seen and examined at bedside, denies any chest pain but is complaining of 5/10 abdominal pain.
Patient denies shortness of breath but hurts with deep breathing.
For MRCP today and liver biopsy.
Objective Data
-
Labs:
Laboratory Results
12/08/24
06:17
WBC 25.6 H
Hgb 13.1
Hct 37.4
Plt Count 81 L D
PT 14.2
INR 1.07
APTT 34.2
Sodium 138
Potassium 4.3
Chloride 109 H
Carbon Dioxide 24
BUN 18 H
Creatinine 1.2 H
Glucose 85
Calcium 7.9 L
Total Bilirubin 0.8
AST 50 H
ALT 78 H
Alkaline Phosphatase 100
Vital Signs:
Vital Signs
Temp Pulse Resp BP Pulse Ox
98.8 F 75 18 135/80 98
12/08/24 07:05 12/08/24 07:05 12/08/24 07:05 12/08/24 07:05 12/08/24 07:05
I&O
12/07/24 12/08/24 12/09/24
06:59 06:59 06:59
Intake Total 2159
Balance 2159
Physical Exam
-
General: Well Developed, Well Nourished, No Apparent Distress and Comfortable
HEENT: Normocephalic, Atraumatic, Moist Mucous Membranes, No Ptosis, PERRLA and Nose Appears Normal
Respiratory: Clear to Auscultation and Non Labored Respirations
Cardiac: Regular Rhythm and S1/S2
Breast: Deferred by me
GI: Normal Bowel Sounds, Tender and Distended
Genito-urinary: No Costovertebral Tender
Musculoskeletal: No Clubbing, No Cyanosis and No Edema
Skin: Warm
Neuro: Awake, Alert, Oriented, AO x 3 and No Motor Deficits
Psych: Calm
Data Reviewed
-
Diagnostic Radiology: Image personally visualized and interpreted and Report Reviewed by me
CT Scan: Image personally visualized and interpreted and Report Reviewed by me
Ultrasound: Image personally visualized and interpreted and Report Reviewed by me
MRI: Image personally visualized and interpreted and Report Reviewed by me
Medical Tests (Nuc Med, Echo etc): Image personally visualized and interpreted and Report Reviewed by me
Labs: Labs Reviewed by me
Old Records: Reviewed
--- NOTE | 2024-12-08 11:59 | CM ---
Patient seen at bedside
Dx: Pancreatitis
no needs
PLAN: home when stable, no needs
drove self to hospital
[2024-12-08 14:56] VITALS: BP 139/89
[2024-12-08] MEDS: LOVENOX 40 MG SC (18:24)
[2024-12-08 22:54] VITALS: BP 109/61
[2024-12-08] MEDS: TYLENOL 650 MG PO (22:56)
[2024-12-09] MEDS: SYNTHROID 137 MCG PO (06:08)
[2024-12-09 07:28] LABS: Hematocrit 36.6 % (37.0-47.0); Mean Corp Hgb Conc. 35.5 g/dL (33.0-37.0); Mean Corpuscular Hgb 33.1 pg (27.0-31.0); Mean Corpuscular Volume 93.1 fL (81.0-99.0); Mean Platelet Volume 11.4 fL (7.4-10.4); Platelet Count 64 10^3/uL (130-400); Red Blood Cell Count 3.93 10^6/uL (4.20-5.40); Red Cell Dist. Width 12.6 % (11.5-14.5); White Blood Cell Count 26.9 10^3/uL (4.8-10.8)
[2024-12-09 07:32] VITALS: BP 107/62
[2024-12-09 08:02] LABS: ALT (SGPT) 66 U/L (0-35); AST (SGOT) 31 U/L (14-36); Alkaline Phosphatase 104 U/L (38-126); Blood Urea Nitrogen 22 mg/dl (7-17); Calcium 7.8 mg/dl (8.4-10.2); Carbon Dioxide 24 mmol/L (22-30); Chloride 110 mmol/L (98-107); Estimated Creatinine Clearance 36 ml/min; Glucose 90 mg/dl (70-99); Potassium 3.9 mmol/L (3.5-5.1); Sodium 138 mmol/L (135-145); Total Bilirubin 0.9 mg/dl (0.2-1.3); Total Protein 4.8 g/dl (6.3-8.2); eGFR 51.43
[2024-12-09] MEDS: CRESTOR 5 MG PO (08:32)
[2024-12-09] MEDS: NSS (PRESERVATIVE FREE) 10 ML IV ×2 (08:32→20:22)
[2024-12-09] MEDS: DELTASONE 3 MG PO (08:32)
[2024-12-09] MEDS: PROTONIX IV 40 MG IV ×2 (08:32→20:23)
--- NOTE | 2024-12-09 11:24 | CON.ID ---
Consultation
-
Date/Time Consultation Requested: December 09, 2024 0803
Date/Time Consultation Performed: December 09, 2024 1130
Requesting Provider: Dr. Kirill Mariee
Performing Provider: Dr. Vandana Mata
Reason for Consultation: Liver abscess
Chief Complaint / Past History
Chief Complaint
N/V
History of Present Illness
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
due to several day history of nausea and vomiting.� No diarrhea.� She did not develop mid back pain from the vomiting.� No fever at home.� No chills.� In the ER white count 32.3. �AST and ALT elevated. �CAT scan of the abdomen pelvis showed a new
hepatic lesion concerning for abscess versus malignancy and suspected portal vein thrombosis.� AFP normal.� CA 19�9 normal. �MRI of the abdomen today shows a 5.1 cm lesion in the left hepatic lobe suspicious for abscess. �Yesterday she spiked a
fever of 101.2.� She is currently not on antibiotic.� Today she reports feeling well. Nausea, vomiting, and back pain all resolved.� No abdominal pain. Last colonoscopy was in 2016 with hyperplastic polyps. No history of diverticulitis. No weight
loss.�
Past History
Additional Past Medical History:
Hypertension
Dyslipidemia
Hypothyroidism
Temporal arteritis (+ biopsy) on low-dose prednisone, Actemra
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
CKD 3
Osteoporosis
History of hyperparathyroidism status post radioactive iodine tx
Basal cell snd SCC skin
Allergy History:
amoxicillin [From Augmentin] Allergy (Severe, Verified 12/06/24 20:46)
Hives
clavulanic acid [From Augmentin] Allergy (Severe, Verified 12/06/24 20:46)
Hives
Fragrances Allergy (Severe, Uncoded 06/19/24 07:21)
Throat closes
Sulfa Allergy (Severe, Uncoded 06/19/24 07:21)
Throat closes, swelling with eye drops
sulphur Allergy (Severe, Uncoded 06/19/24 07:22)
Throat closes up, head ache with airborne exposure
Medications Reviewed: Yes
Current Antibiotics:
None
Social History
Tobacco: Former Smoker
Alcohol: Occasional
Drug: None
Review of Systems
Review of Systems
General: Negative Fever or Chills
HEENT: Negative Stiff Neck, Sinus Problems or Headache
Cardiovascular: Negative Chest Pain or Dyspnea
Respiratory: Negative Dyspnea or Cough
Genital / Urological: Negative Dysuria
Endocrine: Negative Weight Change
Skin / Hair / Nails: Negative Rash
All systems: All other systems were reviewed and were negative
Vital Signs
Temp Pulse Resp BP Pulse Ox
98.8 F 80 16 107/62 96
12/09/24 10:46 12/09/24 07:32 12/09/24 07:32 12/09/24 07:32 12/09/24 07:32
Selected Entries
12/08/24
22:54
Temp 101.2 F H
Physical Exam
Physical Exam
Constitutional: No Acute Distress and Comfortable
Head: Other (No frontal or maxillary sinus tenderness)
Eyes: No Conjunctival Hemorrhage and Sclera Anicteric
Cardiovascular: Regular Rate and S1/S2
Pulmonary: Clear
Gastrointestinal: Soft, Non Tender, Non Distended and Normal Bowel Sounds
Genito-Urinary: Negative CVA Tenderness
Extremities: Negative Edema
Musculoskeletal: Negative Spinal Tenderness
Neurological: AO x 3
Lab / Diagnostic Study Results
12/09/24 06:35
12/09/24 06:35
Abs Immat Gran (auto) 0.2 10^3/uL (0-0.05) H 12/06/24 21:01
Absolute Neuts (auto) 27.5 10^3/uL (1.4-6.5) H 12/06/24 21:01
Absolute Lymphs (auto) 2.1 10^3/uL (1.2-3.4) 12/06/24 21:01
Absolute Monos (auto) 2.2 10^3/uL (0.1-0.6) H 12/06/24 21:01
Absolute Basos (auto) 0.2 10^3/uL (0-0.2) 12/06/24 21:01
Immature Gran % 0.7 % (0-0.5) H 12/06/24 21:01
Neutrophils % 85.1 % (42.2-75.2) H 12/06/24 21:01
Lymphocytes % 6.6 % (20.5-51.1) L 12/06/24 21:01
Monocytes % 6.9 % (1.7-9.3) 12/06/24 21:01
Eosinophils % 0.1 % (0-6) 12/06/24 21:01
Basophils % 0.6 % (0-2) 12/06/24 21:01
PT 14.2 Sec (11.4-14.6) 12/08/24 06:17
INR 1.07 12/08/24 06:17
Ur Squamous Epith Cells 6-10 /LPF (Few) 12/06/24 21:31
Microbiology Results
Micro:
12/09/24 00:47 Blood Culture - Pending
Blood/Venous
12/09/24 00:16 Blood Culture - Pending
Blood/Venous
12/06/24 21:31 Urine Culture - Final
Urine
12/08/24 MRI abd: 5.1 cm lesion in the left hepatic lobe with imaging characteristics that would favor a hepatic abscess. Less likely neoplastic in the absence of solid nodular postcontrast enhancement, but a centrally necrotic malignant mass would
be the primary differential consideration. Recommend tissue sampling and/or fluid analysis if percutaneous drainage is elected.
12/06/24 CT a/p: Hypoattenuating multi lobulated lesion within the left hepatic lobe (segment 3), measuring 4.7 x 3.8 x 2.3 cm, which may represent hepatic abscess or necrotic hepatic tumor. Nonopacification of a peripheral portal branch within the
right anterior hepatic lobe, best seen on series 201 images 14-16, likely representing peripheral portal venous thrombosis. 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 Unchanged focal SMA plaque or dissection.
Assessment / Plan
#Liver abscess
#Fever
#Leukocytosis
# Elevated transaminases
-Follow blood cultures (off abx).
-12/09 s/p liver aspiration of 15 cc pus (off abx).
Follow aerobic/anaerobic, fungal cultures.
-Start empiric [id number] IV q24 and metronidazole 500mg po tid pending cx data.
-Trend wbc
- Eventual colonoscopy
Care Review
Plan reviewed with: Physician (Dr. Mariee)
--- NOTE | 2024-12-09 11:56 | CM ---
Patient seen at bedside
IR, for liver biopsy today
PLAN: home, no needs anticipated, when medically stable
--- NOTE | 2024-12-09 16:04 | W.PN.HOSP.TC ---
Today's Communication/Plan
-
Liver abscess drain today
Assessment / Plan
Assessment / Plan
Impression:
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 Exam
with mild RUQ tenderness to palpation without peritoneal signs. Labs notable for leukocytosis to 32, AST 70, ALT 86, lipase 604. Total bilirubin is normal. CT non-contrast negative for stone but shows a 4.5 x 2.6 cm low attenuation lesion of the
left lobe of the liver. No ascites noted. Diverticulosis noted. No history of liver disease. Reports occasional alcohol use
Repeat CT abdomen pelvis with IV contrast:
1. Hypoattenuating multi lobulated lesion within the left hepatic lobe (segment 3), measuring 4.7 x 3.8 x 2.3 cm, which may represent hepatic abscess or necrotic hepatic tumor.
2. Nonopacification of a peripheral portal branch within the right anterior hepatic lobe, best seen on series 201 images 14-16, likely representing peripheral portal venous thrombosis.
3. 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 Unchanged focal SMA plaque or dissection.
4. Moderate colonic diverticulosis without evidence of diverticulitis
Discussed with IR, for liver biopsy
GI recommending MRCP
MR RI showed:
5.1 cm lesion in the left hepatic lobe with imaging characteristics that would favor a hepatic abscess. Less likely neoplastic in the absence of solid nodular postcontrast enhancement, but a centrally necrotic malignant mass would be the primary
differential consideration. Recommend tissue sampling and/or fluid analysis if percutaneous drainage is elected.
MRI reviewed with the patient.
Possible liver abscess.
IR consulted for liver biopsy/drain
Assessment/plan:
Liver abscess-
The mass is new compared to CT scan in august 2024 and likely associated with LFT changes and possible lipase elevation. T bili is normal.
Advance diet,
- GI consultation
Repeat CT abdomen pelvis with IV contrast:
1. Hypoattenuating multi lobulated lesion within the left hepatic lobe (segment 3), measuring 4.7 x 3.8 x 2.3 cm, which may represent hepatic abscess or necrotic hepatic tumor.
2. Nonopacification of a peripheral portal branch within the right anterior hepatic lobe, best seen on series 201 images 14-16, likely representing peripheral portal venous thrombosis.
3. 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 Unchanged focal SMA plaque or dissection.
4. Moderate colonic diverticulosis without evidence of diverticulitis
Discussed with IR, for liver biopsy
n.p.o. after midnight
12/08
MRCP.
Liver biopsy today
12/09
MR RI showed:
5.1 cm lesion in the left hepatic lobe with imaging characteristics that would favor a hepatic abscess. Less likely neoplastic in the absence of solid nodular postcontrast enhancement, but a centrally necrotic malignant mass would be the primary
differential consideration. Recommend tissue sampling and/or fluid analysis if percutaneous drainage is elected.
MRI reviewed with the patient.
Possible liver abscess.
IR consulted for liver biopsy/drain
Infectious is consulted.
Will start Rocephin /Flagyl
Peripheral portal vein thrombosis
Patient with history of bruises while on baby aspirin
Will wait for liver biopsy
GCA
- prednisone 3mg daily x 1 week
Hypothyroid
- levothyroxine 137 mcg daily
CODE STATUS: Full code
DVT prophylaxis: Lovenox
Diet: Low residual
Disposition: Abscess drain today
Total time spent on today's encounter was 65 minutes which included time spent in counseling the patient/family regarding diagnosis and treatment plan as listed above, goals of care, and symptom management. Case was discussed with nursing staff,
specialists, and care coordinators/case management. All labs and imaging personally reviewed by me. Remainder the time spent in detailed review of previous records, lab data, imaging, and other medical provider documentation.
Anticipated Discharge: > 48 hours
Subjective/Interval History
-
Date of Service: December 09, 2024
Patient seen and examined at bedside, still with abdominal pain.
Patient had fever last night.
MRI reviewed with the patient.
Possible liver abscess.
IR consulted for liver biopsy/drain today
Objective Data
-
Labs:
Laboratory Results
12/09/24
06:35
WBC 26.9 H
Hgb 13.0
Hct 36.6 L
Plt Count 64 L D
Sodium 138
Potassium 3.9
Chloride 110 H
Carbon Dioxide 24
BUN 22 H
Creatinine 1.1 H
Glucose 90
Calcium 7.8 L
Total Bilirubin 0.9
AST 31
ALT 66 H
Alkaline Phosphatase 104
Vital Signs:
Vital Signs
Temp Pulse Resp BP Pulse Ox
98.8 F 80 16 107/62 96
12/09/24 10:46 12/09/24 07:32 12/09/24 07:32 12/09/24 07:32 12/09/24 07:32
I&O
12/08/24 12/09/24 12/10/24
06:59 06:59 06:59
Intake Total 2160 / 2160 1080 / 1080
Balance 2160 / 2160 1080 / 1080
Physical Exam
-
General: Well Developed, Well Nourished, No Apparent Distress and Comfortable
HEENT: Normocephalic, Atraumatic, Moist Mucous Membranes, No Ptosis, PERRLA and Nose Appears Normal
Respiratory: Clear to Auscultation and Non Labored Respirations
Cardiac: Regular Rhythm and S1/S2
Breast: Deferred by me
GI: Normal Bowel Sounds, Tender and Distended
Genito-urinary: No Costovertebral Tender
Musculoskeletal: No Clubbing, No Cyanosis and No Edema
Skin: Warm
Neuro: Awake, Alert, Oriented, AO x 3 and No Motor Deficits
Psych: Calm
Data Reviewed
-
Diagnostic Radiology: Image personally visualized and interpreted and Report Reviewed by me
CT Scan: Image personally visualized and interpreted and Report Reviewed by me
Ultrasound: Image personally visualized and interpreted and Report Reviewed by me
MRI: Image personally visualized and interpreted and Report Reviewed by me
Medical Tests (Nuc Med, Echo etc): Image personally visualized and interpreted and Report Reviewed by me
Labs: Labs Reviewed by me
Old Records: Reviewed
--- NOTE | 2024-12-09 16:05 | W.PN.GI.CBS2 ---
Today's Communication / Plan
-
Results of MRI d/w patient
IR for liver abscess drainage
AFP neg
At this juncture no new GI recs will sign off please call for ?
Assessment / Plan
-
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
vomiting since last Saturday, leukocytosis noted, likely related to steroids but also noted on CAT scan was hypoattenuating multilobular lesion in the left attic lobe measuring 4.7 x 3.8 x 2.3 cm, rule out hepatic abscess versus necrotic tumor, mild
elevation in transaminases but otherwise unremarkable liver testing.
No previous history of liver disease, no significant alcohol use.
MRI 12/09 5.1 cm lesion in the left hepatic lobe with imaging characteristics that would favor a hepatic abscess. Less likely neoplastic in the absence of solid nodular postcontrast enhancement, but a centrally necrotic malignant mass would be the
primary differential consideration. Recommend tissue sampling and/or fluid analysis if percutaneous drainage is elected.
Impression
- Abd pain with N/V
- New hepatic lesion noted on recent CT scan suggestive of abscess
- Elevated LFTs
- Temporal arteritis
- On steroids
- HTN
- Hyperlipdemia
- Hypothyroidism
Recommendations
- Results of MRI d/w pt
- Awaiting IR drain of hepatic abscess. No findings on MRI to suggest diverticulitis
- AFP negative
- C/w abx, blood cultures pending
- May benefit form OP colonoscopy
At this juncture no new GI recs will sign off please call for ?
Subjective
Subjective
Date of Service: December 09, 2024
Continues to have same abd pain. Denies nausea/vomiting. Hungry awaiting liver abscess drainage by IR today
Objective
Data Reviewed
Laboratory Data:
Laboratory Results
12/09/24 06:35
12/09/24 06:35
Laboratory Results
PT 14.2 Sec (11.4-14.6) 12/08/24 06:17
INR 1.07 12/08/24 06:17
APTT 34.2 Sec (23.4-35.0) 12/08/24 06:17
Magnesium 2.1 mg/dl (1.6-2.3) 12/07/24 05:51
Total Bilirubin 0.9 mg/dl (0.2-1.3) 12/09/24 06:35
AST 31 U/L (14-36) 12/09/24 06:35
ALT 66 U/L (0-35) H 12/09/24 06:35
Alkaline Phosphatase 104 U/L (38-126) 12/09/24 06:35
Lipase 604 U/L (23-300) H 12/06/24 21:01
Vital Signs and I&O:
Vital Signs
Temp Pulse Resp BP Pulse Ox
98.8 F 80 16 107/62 96
12/09/24 10:46 12/09/24 07:32 12/09/24 07:32 12/09/24 07:32 12/09/24 07:32
I&O
12/08/24 12/09/24 12/10/24
06:59 06:59 06:59
Intake Total 0 / 2159 1080 / 1080
Balance 0 / 216 1080 / 1080
Physical Exam
Physical Exam
GEN: No acute distress, conversant, pleasant
HEENT: anicteric, extraocular movements intact, clear oropharynx without exudates
GI: soft, non-distended, RUQ tender to palpation, normal active bowel sounds, no hepatosplenomegaly
EXT: warm, well perfused, no edema bilaterally
NEURO: AAOx3, non-focal
--- NOTE | 2024-12-09 16:07 | W.PN.UPDATE ---
Update Note
Progress Note Update
US guided placement of 8.5 Fr drain, yielding 15 cc of pus. Sent for laboratory analysis.
--- NOTE | 2024-12-09 16:41 | DOWNTIME ---
There was a [employer] Downtime on 12/09/2024 from 1230 to 12/09/2024 at 1550. Downtime documentation of patient's care, including medication administrations, has been reconciled in the electronic record per guidelines. Refer to the
patient's paper chart under the miscellaneous tab to see printed paper medication records and downtime forms.
[2024-12-09] MEDS: ULTRAM 50 MG PO (16:54)
[2024-12-09 16:55] VITALS: BP 130/79
[2024-12-09] MEDS: STERILE WATER FOR INJECTION 20 ML IV (17:00)
[2024-12-09] MEDS: ROCEPHIN 2000 MG IV (17:00)
[2024-12-09] MEDS: LOVENOX SC (18:27)
[2024-12-09] MEDS: DILAUDID 0.5 MG IV (20:23)
[2024-12-09] MEDS: FLAGYL 500 MG PO (20:23)
[2024-12-09 23:00] VITALS: BP 108/61
[2024-12-10] MEDS: ULTRAM 50 MG PO ×2 (03:20→14:39)
[2024-12-10] MEDS: SYNTHROID 137 MCG PO (05:52)
[2024-12-10] MEDS: FLAGYL 500 MG PO ×3 (05:52→20:55)
[2024-12-10 06:53] LABS: Hematocrit 36.6 % (37.0-47.0); Hemoglobin 12.8 g/dL (12.0-16.0); Mean Corpuscular Hgb 32.9 pg (27.0-31.0); Mean Corpuscular Volume 94.1 fL (81.0-99.0); Mean Platelet Volume 11.7 fL (7.4-10.4); Platelet Count 72 10^3/uL (130-400); Red Blood Cell Count 3.89 10^6/uL (4.20-5.40); Red Cell Dist. Width 12.8 % (11.5-14.5); White Blood Cell Count 20.1 10^3/uL (4.8-10.8)
[2024-12-10 07:08] LABS: ALT (SGPT) 58 U/L (0-35); AST (SGOT) 28 U/L (14-36); Albumin 2.9 g/dl (3.5-5.0); Alkaline Phosphatase 89 U/L (38-126); Blood Urea Nitrogen 24 mg/dl (7-17); Calcium 7.8 mg/dl (8.4-10.2); Carbon Dioxide 26 mmol/L (22-30); Chloride 110 mmol/L (98-107); Estimated Creatinine Clearance 36 ml/min; Glucose 101 mg/dl (70-99); Potassium 4.1 mmol/L (3.5-5.1); Sodium 139 mmol/L (135-145); Total Bilirubin 0.6 mg/dl (0.2-1.3); Total Protein 4.9 g/dl (6.3-8.2); eGFR 51.43
[2024-12-10 07:32] VITALS: BP 123/67
[2024-12-10] MEDS: DELTASONE 3 MG PO (08:10)
[2024-12-10] MEDS: PROTONIX IV 40 MG IV ×2 (08:10→20:47)
[2024-12-10] MEDS: NSS (PRESERVATIVE FREE) 10 ML IV ×2 (08:10→20:47)
[2024-12-10] MEDS: CRESTOR 5 MG PO (08:10)
--- NOTE | 2024-12-10 11:56 | W.PN.HOSP.TC ---
Addendum entered and electronically signed by Kirill Mariee MD 12/10/24 16:42:
- Sepsis POA secondary to liver abscess
- hypothermia < 96.8 and leukocytosis
-
o��� Thrombocytopenia
Original Note:
Today's Communication/Plan
-
pending drain culture
Assessment / Plan
Assessment / Plan
Impression:
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 Exam
with mild RUQ tenderness to palpation without peritoneal signs. Labs notable for leukocytosis to 32, AST 70, ALT 86, lipase 604. Total bilirubin is normal. CT non-contrast negative for stone but shows a 4.5 x 2.6 cm low attenuation lesion of the
left lobe of the liver. No ascites noted. Diverticulosis noted. No history of liver disease. Reports occasional alcohol use
Repeat CT abdomen pelvis with IV contrast:
1. Hypoattenuating multi lobulated lesion within the left hepatic lobe (segment 3), measuring 4.7 x 3.8 x 2.3 cm, which may represent hepatic abscess or necrotic hepatic tumor.
2. Nonopacification of a peripheral portal branch within the right anterior hepatic lobe, best seen on series 201 images 14-16, likely representing peripheral portal venous thrombosis.
3. 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 Unchanged focal SMA plaque or dissection.
4. Moderate colonic diverticulosis without evidence of diverticulitis
Discussed with IR, for liver biopsy
GI recommending MRCP
MR RI showed:
5.1 cm lesion in the left hepatic lobe with imaging characteristics that would favor a hepatic abscess. Less likely neoplastic in the absence of solid nodular postcontrast enhancement, but a centrally necrotic malignant mass would be the primary
differential consideration. Recommend tissue sampling and/or fluid analysis if percutaneous drainage is elected.
MRI reviewed with the patient.
liver abscess.
Status post drain by IR.
Assessment/plan:
Liver abscess-
The mass is new compared to CT scan in august 2024 and likely associated with LFT changes and possible lipase elevation. T bili is normal.
Advance diet,
- GI consultation
Repeat CT abdomen pelvis with IV contrast:
1. Hypoattenuating multi lobulated lesion within the left hepatic lobe (segment 3), measuring 4.7 x 3.8 x 2.3 cm, which may represent hepatic abscess or necrotic hepatic tumor.
2. Nonopacification of a peripheral portal branch within the right anterior hepatic lobe, best seen on series 201 images 14-16, likely representing peripheral portal venous thrombosis.
3. 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 Unchanged focal SMA plaque or dissection.
4. Moderate colonic diverticulosis without evidence of diverticulitis
Discussed with IR, for liver biopsy
n.p.o. after midnight
12/08
MRCP.
12/09
MR RI showed:
5.1 cm lesion in the left hepatic lobe with imaging characteristics that would favor a hepatic abscess. Less likely neoplastic in the absence of solid nodular postcontrast enhancement, but a centrally necrotic malignant mass would be the primary
differential consideration. Recommend tissue sampling and/or fluid analysis if percutaneous drainage is elected.
This post IR abscess
Infectious is consulted.
Will start Rocephin /Flagyl
Peripheral portal vein thrombosis
Patient with history of bruises while on baby aspirin
Will wait for liver biopsy
GCA
- prednisone 3mg daily x 1 week
Hypothyroid
- levothyroxine 137 mcg daily
CODE STATUS: Full code
DVT prophylaxis: Lovenox
Diet: Low residual
Disposition: Pending [facility].
Total time spent on today's encounter was 65 minutes which included time spent in counseling the patient/family regarding diagnosis and treatment plan as listed above, goals of care, and symptom management. Case was discussed with nursing staff,
specialists, and care coordinators/case management. All labs and imaging personally reviewed by me. Remainder the time spent in detailed review of previous records, lab data, imaging, and other medical provider documentation.
Anticipated Discharge: 24 - 48 hours
Subjective/Interval History
-
Date of Service: December 10, 2024
Patient seen and examined at bedside, abdominal pain improved, had liver abscess drained yesterday.
Denies any chest pain or shortness of breath.
Objective Data
-
Labs:
Laboratory Results
12/10/24
06:25
WBC 20.1 H
Hgb 12.8
Hct 36.6 L
Plt Count 72 L
Sodium 139
Potassium 4.1
Chloride 110 H
Carbon Dioxide 26
BUN 24 H
Creatinine 1.1 H
Glucose 101 H
Calcium 7.8 L
Total Bilirubin 0.6
AST 28
ALT 58 H
Alkaline Phosphatase 89
Vital Signs:
Vital Signs
Temp Pulse Resp BP Pulse Ox
97.9 F 73 16 123/67 93
12/10/24 07:32 12/10/24 07:32 12/10/24 07:32 12/10/24 07:32 12/10/24 07:32
I&O
12/09/24 12/10/24 12/11/24
06:59 06:59 06:59
Intake Total 1080 / 1080 720 / 720
Output Total 70 / 70
Balance 1080 / 1080 650 / 650
Physical Exam
-
General: Well Developed, Well Nourished, No Apparent Distress and Comfortable
HEENT: Normocephalic, Atraumatic, Moist Mucous Membranes, No Ptosis, PERRLA and Nose Appears Normal
Respiratory: Clear to Auscultation and Non Labored Respirations
Cardiac: Regular Rhythm and S1/S2
Breast: Deferred by me
GI: Normal Bowel Sounds, Tender, Distended and Other (Liver abscess drainage)
Genito-urinary: No Costovertebral Tender
Musculoskeletal: No Clubbing, No Cyanosis and No Edema
Skin: Warm
Neuro: Awake, Alert, Oriented, AO x 3 and No Motor Deficits
Psych: Calm
Data Reviewed
-
Diagnostic Radiology: Image personally visualized and interpreted and Report Reviewed by me
CT Scan: Image personally visualized and interpreted and Report Reviewed by me
Ultrasound: Image personally visualized and interpreted and Report Reviewed by me
MRI: Image personally visualized and interpreted and Report Reviewed by me
Medical Tests (Nuc Med, Echo etc): Image personally visualized and interpreted and Report Reviewed by me
Labs: Labs Reviewed by me
Old Records: Reviewed
--- NOTE | 2024-12-10 14:46 | W.PN.ID1 ---
Date of Service
Date of Service: December 10, 2024
Today's Communication
Follow abscess cx.
Assessment / Plan
#Liver abscess
#Fever - resolved
#Leukocytosis- improving
# Elevated transaminases - trending down.
-Follow blood cultures (off abx).
-12/09 s/p liver aspiration of 15 cc pus (off abx).
Aerobic neg to date; anaerobic cx pending, fungal culture pending
-Continue empiric [id number] IV q24 and metronidazole 500mg po tid pending cx data (d2)
-Trend wbc
- Eventual colonoscopy outpatient
# Conditions [employer]
Hypertension
Dyslipidemia
Hypothyroidism
Temporal arteritis (+ biopsy) on low-dose prednisone, Actemra
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
CKD 3
Osteoporosis
History of hyperthyroidism status post radioactive iodine tx
Basal cell snd SCC skin
Chief Complaint
-: Other (Liver abscess)
Subjective / Review of Systems
No acute issues.
Vital Signs / Physical Exam
Vital Signs
Vital Signs
Temp Pulse Resp BP Pulse Ox
97.9 F 73 16 123/67 93
12/10/24 07:32 12/10/24 07:32 12/10/24 07:32 12/10/24 07:32 12/10/24 07:32
Physical Exam
Constitutional: No Acute Distress and Comfortable
Eyes: No Conjunctival Hemorrhage and Sclera Anicteric
Cardiovascular: Regular Rate and S1/S2
Pulmonary: Clear
Gastrointestinal: Soft, Non Tender, Non Distended, Normal Bowel Sounds and Other (RUQ FLACA drain with bloody brown fluid.)
Extremities: Negative Edema
Objective Data
Lab Data
Lab Results
12/10/24 06:25
05/29/25 06:25
PT 14.2 Sec (11.4-14.6) 12/08/24 06:17
INR 1.07 12/08/24 06:17
APTT 34.2 Sec (23.4-35.0) 12/08/24 06:17
Estimated Creat Clear 36 ml/min 12/10/24 06:25
Total Bilirubin 0.6 mg/dl (0.2-1.3) 12/10/24 06:25
AST 28 U/L (14-36) 12/10/24 06:25
ALT 58 U/L (0-35) H 12/10/24 06:25
Alkaline Phosphatase 89 U/L (38-126) 12/10/24 06:25
Most recent labs reviewed.
Micro Results:
12/09/24 12:13 Wound Culture - Preliminary
Abscess No growth
Gram Stain - Preliminary
12/09/24 12:13 Anaerobic Culture - Preliminary
Abscess Culture pending. Anaerobic cultures are examined after 3
days incubation. Additional information to follow.
12/09/24 12:14 Fungal Smear - Pending
Abscess
12/09/24 00:47 Blood Culture - Preliminary
Blood/Venous No Growth in 24 hours- Final report to follow
12/09/24 00:16 Blood Culture - Preliminary
Blood/Venous No Growth in 24 hours- Final report to follow
12/09/24 12:13 Fungal Culture - Preliminary
Abscess Culture in progress.
Positive cultures are reported as soon as detected.
Final report to follow in four to five weeks.
12/06/24 21:31 Urine Culture - Final
Urine
12/08/24 MRI abd: 5.1 cm lesion in the left hepatic lobe with imaging characteristics that would favor a hepatic abscess. Less likely neoplastic in the absence of solid nodular postcontrast enhancement, but a centrally necrotic malignant mass would
be the primary differential consideration. Recommend tissue sampling and/or fluid analysis if percutaneous drainage is elected.
12/06/24 CT a/p: Hypoattenuating multi lobulated lesion within the left hepatic lobe (segment 3), measuring 4.7 x 3.8 x 2.3 cm, which may represent hepatic abscess or necrotic hepatic tumor. Nonopacification of a peripheral portal branch within the
right anterior hepatic lobe, best seen on series 201 images 14-16, likely representing peripheral portal venous thrombosis. 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 Unchanged focal SMA plaque or dissection.
[2024-12-10 14:49] VITALS: BP 129/57
--- NOTE | 2024-12-10 15:17 | PN.CDI ---
CDI
- -
CDI:
Physician Documentation Request
Admit Date: 12/06/24 23:22
Dear Doctor Kodi,
Patient admitted with liver abscess.
Platelet counts documented below:
Laboratory Tests
12/06/24 12/07/24 12/08/24
21:01 05:51 06:17
Plt Count 129 L 113 L 81 L D
12/09/24 12/10/24
06:35 06:25
Plt Count 64 L D 72 L
Based on the above, please clarify in the progress notes, the appropriate diagnosis, if significant, that supports the above abnormalities and additional evaluation, monitoring and/or treatment rendered:
Thrombocytopenia
Insignificant abnormal lab findings
Other
Use of terms such as suspected, likely, concern for, or probable (associated with a specific diagnosis that is being evaluated, monitored, or treated as if it exists) are acceptable and can be coded in the inpatient setting, when documented at the
time of discharge.
Thank you,
Amy ESCOTO,RN,CCDS
CDI Specialist
Available via tiger text
Please use your independent medical judgment in providing your response.
--- NOTE | 2024-12-10 15:26 | PN.CDI ---
CDI
- -
CDI:
Physician Documentation Request
Admit Date: 12/06/24 23:22
Dear Doctor Kodi,
Patient admitted with liver abscess.
12/09 Update note, 'US guided placement of 8.5 Fr drain, yielding 15 cc of pus.'
12/06 On admission, ' WBC 32.3 and HR 98
12/08 WBC 25.6 and T max 101.2
Please clarify which of the following most accurately describes the status of the patient's infection:
Sepsis, POA
Sepsis evolved during hospitalization
Liver abscess only
Sepsis
- Systemic manifestations of infection, with 2 or more SIRS criteria which include:
- Fever >100.9 degrees F or hypothermia < 96.8 degrees F
- Leukocytosis - WBC > 12,000 or leukopenia - WBC < 4,000 or > 10% bands
- Tachycardia > 90 beats per minute
- Tachypnea - RR > 20 breaths per minute or PaCO2 , 32mmHg
Source: Merck Manual 2013
- Indicate the known or suspected organism
- Indicate the known or suspected underlying infection, such as liver abscess
Localized Infection Only, Without Systemic Illness
- indicate the site/source, such as liver abscess
Other
Use of terms such as suspected, likely, concern for, or probable (associated with a specific diagnosis that is being evaluated, monitored, or treated as if it exists) are acceptable and can be coded in the inpatient setting, when documented at the
time of discharge.
Thank you,
Amy ESCOTO,RN,CCDS
CDI Specialist
Available via [place] text
Please use your independent medical judgment in providing your response.
[2024-12-10] MEDS: LOVENOX SC (16:51)
[2024-12-10] MEDS: ROCEPHIN 2000 MG IV (17:46)
[2024-12-10] MEDS: STERILE WATER FOR INJECTION 20 ML IV (17:47)
[2024-12-10 23:09] VITALS: BP 117/65
[2024-12-11] MEDS: FLAGYL 500 MG PO ×2 (05:19→14:31)
[2024-12-11] MEDS: SYNTHROID 137 MCG PO (05:19)
[2024-12-11 06:27] LABS: Hematocrit 36.4 % (37.0-47.0); Mean Corp Hgb Conc. 35.7 g/dL (33.0-37.0); Mean Corpuscular Hgb 32.9 pg (27.0-31.0); Mean Corpuscular Volume 92.2 fL (81.0-99.0); Mean Platelet Volume 11.5 fL (7.4-10.4); Platelet Count 109 10^3/uL (130-400); Red Blood Cell Count 3.95 10^6/uL (4.20-5.40); Red Cell Dist. Width 12.8 % (11.5-14.5); White Blood Cell Count 12.5 10^3/uL (4.8-10.8)
[2024-12-11 06:48] LABS: Blood Urea Nitrogen 21 mg/dl (7-17); Carbon Dioxide 25 mmol/L (22-30); Chloride 109 mmol/L (98-107); Estimated Creatinine Clearance 36 ml/min; Glucose 90 mg/dl (70-99); Potassium 4.1 mmol/L (3.5-5.1); Sodium 139 mmol/L (135-145); eGFR 51.43
[2024-12-11 07:23] VITALS: BP 111/61
[2024-12-11] MEDS: PROTONIX IV IV ×2 (08:43→08:54)
[2024-12-11] MEDS: DELTASONE 3 MG PO (08:43)
[2024-12-11] MEDS: CRESTOR 5 MG PO (08:43)
[2024-12-11] MEDS: NSS (PRESERVATIVE FREE) 10 ML IV (08:44)
--- NOTE | 2024-12-11 09:33 | W.PN.ID1 ---
Date of Service
Date of Service: December 11, 2024
Today's Communication
-Continue empiric [id number] IV q24 and metronidazole 500mg po tid pending cx data (d3)
- If dc home today before cx data available, transition to empiric cefuroxime 500mg po bid and metronidazole 500mg po tid until resolution of hepatic abscess by repeat CT. Can prescribe 3 week course.
Assessment / Plan
#Liver abscess
#Fever - resolved
#Leukocytosis- trending down
# Elevated transaminases - trending down.
# PCN allergy - hives
-blood cultures neg (off abx).
-12/09 s/p liver aspiration of 15 cc pus (off abx).
Aerobic gram stain: gram variable rods, cx No growth to date. Anaerobic cx pending, fungal culture pending
-Continue empiric [id number] IV q24 and metronidazole 500mg po tid pending cx data (d3)
- If dc home before cx data available, transition to empiric cefuroxime 500mg po bid and metronidazole 500mg po tid until resolution of hepatic abscess by repeat CT. Can prescribe 3 week course.
- Eventual colonoscopy outpatient
# Conditions [employer]OTECTION [employer]IST
Hypertension
Dyslipidemia
Hypothyroidism
Temporal arteritis (+ biopsy) on low-dose prednisone, Actemra
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
CKD 3
Osteoporosis
History of hyperthyroidism status post radioactive iodine tx
Basal cell snd SCC skin
Chief Complaint
-: Other (Liver abscess)
Subjective / Review of Systems
Insisting on going home today.
Vital Signs / Physical Exam
Vital Signs
Vital Signs
Temp Pulse Resp BP Pulse Ox
97.9 F 76 17 111/61 94
12/11/24 07:23 12/11/24 07:23 12/11/24 07:23 12/11/24 07:23 12/11/24 07:23
Physical Exam
Constitutional: No Acute Distress and Comfortable
Eyes: No Conjunctival Hemorrhage and Sclera Anicteric
Cardiovascular: Regular Rate and S1/S2
Pulmonary: Clear
Gastrointestinal: Soft, Non Tender, Non Distended, Normal Bowel Sounds and Other (RUQ FLACA drain with bloody fluid.)
Extremities: Negative Edema
Objective Data
Lab Data
Lab Results
12/11/24 05:58
12/11/24 05:58
PT 14.2 Sec (11.4-14.6) 12/08/24 06:17
INR 1.07 12/08/24 06:17
APTT 34.2 Sec (23.4-35.0) 12/08/24 06:17
Estimated Creat Clear 36 ml/min 12/11/24 05:58
Total Bilirubin 0.6 mg/dl (0.2-1.3) 12/10/24 06:25
AST 28 U/L (14-36) 12/10/24 06:25
ALT 58 U/L (0-35) H 12/10/24 06:25
Alkaline Phosphatase 89 U/L (38-126) 12/10/24 06:25
Most recent labs reviewed.
Micro Results:
12/09/24 00:47 Blood Culture - Preliminary
Blood/Venous No Growth in 48 hours- Final report to follow
12/09/24 00:16 Blood Culture - Preliminary
Blood/Venous No Growth in 48 hours- Final report to follow
12/09/24 12:13 Wound Culture - Preliminary
Abscess No growth
Gram Stain - Preliminary
12/09/24 12:13 Anaerobic Culture - Preliminary
Abscess Culture pending. Anaerobic cultures are examined after 3
days incubation. Additional information to follow.
12/09/24 12:14 Fungal Smear - Pending
Abscess
12/09/24 12:13 Fungal Culture - Preliminary
Abscess Culture in progress.
Positive cultures are reported as soon as detected.
Final report to follow in four to five weeks.
12/06/24 21:31 Urine Culture - Final
Urine
12/08/24 MRI abd: 5.1 cm lesion in the left hepatic lobe with imaging characteristics that would favor a hepatic abscess. Less likely neoplastic in the absence of solid nodular postcontrast enhancement, but a centrally necrotic malignant mass would
be the primary differential consideration. Recommend tissue sampling and/or fluid analysis if percutaneous drainage is elected.
12/06/24 CT a/p: Hypoattenuating multi lobulated lesion within the left hepatic lobe (segment 3), measuring 4.7 x 3.8 x 2.3 cm, which may represent hepatic abscess or necrotic hepatic tumor. Nonopacification of a peripheral portal branch within the
right anterior hepatic lobe, best seen on series 201 images 14-16, likely representing peripheral portal venous thrombosis. 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 Unchanged focal SMA plaque or dissection.
Care Review
Plan reviewed with: Physician (Dr. Mariee)
--- NOTE | 2024-12-11 10:43 | CM ---
Addendum entered by Lucia Rowell 12/11/24 14:01:
CM consult completed for VN
Original Note:
Patient seen at bedside
IMM explained & signed
discussed VN - preferred [facility]
patient with drain
Notified [facility] liaison - [facility]
PLAN: Home when stable, with [facility]
patient drove self
--- NOTE | 2024-12-11 12:29 | VNURNOTE ---
Home Health Liaison met with patient at bedside to discuss [facility] nurse/therapy, visits, schedule and homebound status. Patient is agreeable and understands that visits at home will be 2-3 x per week to assess and teach medical and drain management.
Patient is aware that [facility] will contact them for start of care in 1-2 days after discharge from . Confirmed with IR Dr Flores that pt will need to flush drain at home daily. Called pt's preferred pharmacy ([id number]); they do not carry NSS flushes.
Confirmed [facility] carries. Patient aware and is agreeable to fill Rx at [facility]. Hospitalist aware.
[facility] referral completed in [facility].
--- NOTE | 2024-12-11 13:36 | W.PN.HOSP.TC ---
Today's Communication/Plan
-
Discharge home
Assessment / Plan
Assessment / Plan
Impression:
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 Exam
with mild RUQ tenderness to palpation without peritoneal signs. Labs notable for leukocytosis to 32, AST 70, ALT 86, lipase 604. Total bilirubin is normal. CT non-contrast negative for stone but shows a 4.5 x 2.6 cm low attenuation lesion of the
left lobe of the liver. No ascites noted. Diverticulosis noted. No history of liver disease. Reports occasional alcohol use
Repeat CT abdomen pelvis with IV contrast:
1. Hypoattenuating multi lobulated lesion within the left hepatic lobe (segment 3), measuring 4.7 x 3.8 x 2.3 cm, which may represent hepatic abscess or necrotic hepatic tumor.
2. Nonopacification of a peripheral portal branch within the right anterior hepatic lobe, best seen on series 201 images 14-16, likely representing peripheral portal venous thrombosis.
3. 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 Unchanged focal SMA plaque or dissection.
4. Moderate colonic diverticulosis without evidence of diverticulitis
Discussed with IR, for liver biopsy
GI recommending MRCP
MR RI showed:
5.1 cm lesion in the left hepatic lobe with imaging characteristics that would favor a hepatic abscess. Less likely neoplastic in the absence of solid nodular postcontrast enhancement, but a centrally necrotic malignant mass would be the primary
differential consideration. Recommend tissue sampling and/or fluid analysis if percutaneous drainage is elected.
MRI reviewed with the patient.
liver abscess.
Status post drain by IR.
Infectious is recommending Ceftin/metronidazole on discharge for 3 weeks.
Patient need to come for follow-up with interventional radiology for abscessogram and drain check, patient provided with intervention radiology information and interventional radiology was informed with patient discharge and stated that we will call
the patient with appointment.
Assessment/plan:
Liver abscess-
The mass is new compared to CT scan in august 2024 and likely associated with LFT changes and possible lipase elevation. T bili is normal.
Advance diet,
- GI consultation
Repeat CT abdomen pelvis with IV contrast:
1. Hypoattenuating multi lobulated lesion within the left hepatic lobe (segment 3), measuring 4.7 x 3.8 x 2.3 cm, which may represent hepatic abscess or necrotic hepatic tumor.
2. Nonopacification of a peripheral portal branch within the right anterior hepatic lobe, best seen on series 201 images 14-16, likely representing peripheral portal venous thrombosis.
3. 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 Unchanged focal SMA plaque or dissection.
4. Moderate colonic diverticulosis without evidence of diverticulitis
Discussed with IR, for liver biopsy
n.p.o. after midnight
12/08
MRCP.
12/09
MR RI showed:
5.1 cm lesion in the left hepatic lobe with imaging characteristics that would favor a hepatic abscess. Less likely neoplastic in the absence of solid nodular postcontrast enhancement, but a centrally necrotic malignant mass would be the primary
differential consideration. Recommend tissue sampling and/or fluid analysis if percutaneous drainage is elected.
S/p IR abscess drain.
Infectious is consulted.
Will start Rocephin /Flagyl
12/11
Charged home on Ceftin and flagyl
Peripheral portal vein thrombosis
Patient with history of bruises while on baby aspirin
Will wait for liver biopsy
Discussed with GI, no need to treat since it was not seen on MRI
GCA
- prednisone 3mg daily x 1 week
Hypothyroid
- levothyroxine 137 mcg daily
CODE STATUS: Full code
DVT prophylaxis: Lovenox
Diet: Low residual
Disposition: Discharged home on Ceftin and flagyl
Total time spent on today's encounter was 65 minutes which included time spent in counseling the patient/family regarding diagnosis and treatment plan as listed above, goals of care, and symptom management. Case was discussed with nursing staff,
specialists, and care coordinators/case management. All labs and imaging personally reviewed by me. Remainder the time spent in detailed review of previous records, lab data, imaging, and other medical provider documentation.
Anticipated Discharge: Today
Subjective/Interval History
-
Date of Service: December 11, 2024
Patient seen and examined at bedside, denies any chest pain or shortness of breath, no abdominal pain, no nausea, no vomiting, no diarrhea or constipation.
Plan to discharge home today with visiting nurse.
Objective Data
-
Labs:
Laboratory Results
12/11/24
05:58
WBC 12.5 H
Hgb 13.0
Hct 36.4 L
Plt Count 109 L D
Sodium 139
Potassium 4.1
Chloride 109 H
Carbon Dioxide 25
BUN 21 H
Creatinine 1.1 H
Glucose 90
Calcium 8.0 L
Vital Signs:
Vital Signs
Temp Pulse Resp BP Pulse Ox
97.9 F 76 17 111/61 94
12/11/24 07:23 12/11/24 07:23 12/11/24 07:23 12/11/24 07:23 12/11/24 07:23
I&O
12/10/24 12/11/24 12/12/24
06:59 06:59 06:59
Intake Total 720 / 720 250 / 250
Output Total 70 / 70 35 / 35
Balance 650 / 650 215 / 215
Physical Exam
-
General: Well Developed, Well Nourished, No Apparent Distress and Comfortable
HEENT: Normocephalic, Atraumatic, Moist Mucous Membranes, No Ptosis, PERRLA and Nose Appears Normal
Respiratory: Clear to Auscultation and Non Labored Respirations
Cardiac: Regular Rhythm and S1/S2
Breast: Deferred by me
GI: Normal Bowel Sounds, Tender, Distended and Other (Liver abscess drainage)
Genito-urinary: No Costovertebral Tender
Musculoskeletal: No Clubbing, No Cyanosis and No Edema
Skin: Warm
Neuro: Awake, Alert, Oriented, AO x 3 and No Motor Deficits
Psych: Calm
Data Reviewed
-
Diagnostic Radiology: Image personally visualized and interpreted and Report Reviewed by me
CT Scan: Image personally visualized and interpreted and Report Reviewed by me
Ultrasound: Image personally visualized and interpreted and Report Reviewed by me
MRI: Image personally visualized and interpreted and Report Reviewed by me
Medical Tests (Nuc Med, Echo etc): Image personally visualized and interpreted and Report Reviewed by me
Labs: Labs Reviewed by me
Old Records: Reviewed
--- NOTE | 2024-12-11 13:45 | W.DCSUMMARY ---
Discharge Summary
Discharge Data
Date of Admission: 12/06/24
Date of Discharge: 12/11/24
-
Pending Results: No
Hospital Course
Hospital course
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 Exam
with mild RUQ tenderness to palpation without peritoneal signs. Labs notable for leukocytosis to 32, AST 70, ALT 86, lipase 604. Total bilirubin is normal. CT non-contrast negative for stone but shows a 4.5 x 2.6 cm low attenuation lesion of the
left lobe of the liver. No ascites noted. Diverticulosis noted. No history of liver disease. Reports occasional alcohol use
Repeat CT abdomen pelvis with IV contrast:
1. Hypoattenuating multi lobulated lesion within the left hepatic lobe (segment 3), measuring 4.7 x 3.8 x 2.3 cm, which may represent hepatic abscess or necrotic hepatic tumor.
2. Nonopacification of a peripheral portal branch within the right anterior hepatic lobe, best seen on series 201 images 14-16, likely representing peripheral portal venous thrombosis.
3. 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 Unchanged focal SMA plaque or dissection.
4. Moderate colonic diverticulosis without evidence of diverticulitis
Discussed with IR, for liver biopsy
GI recommending MRCP
MR RI showed:
5.1 cm lesion in the left hepatic lobe with imaging characteristics that would favor a hepatic abscess. Less likely neoplastic in the absence of solid nodular postcontrast enhancement, but a centrally necrotic malignant mass would be the primary
differential consideration. Recommend tissue sampling and/or fluid analysis if percutaneous drainage is elected.
MRI reviewed with the patient.
liver abscess.
Status post drain by IR.
Infectious is recommending Ceftin/metronidazole on discharge for 3 weeks.
Patient need to come for follow-up with interventional radiology for abscessogram and drain check, patient provided with intervention radiology information and interventional radiology was informed with patient discharge and stated that we will call
the patient with appointment.
During hospitalization patient was treated from the following
Liver abscess-
The mass is new compared to CT scan in august 2024 and likely associated with LFT changes and possible lipase elevation. T bili is normal.
Advance diet,
- GI consultation
Repeat CT abdomen pelvis with IV contrast:
1. Hypoattenuating multi lobulated lesion within the left hepatic lobe (segment 3), measuring 4.7 x 3.8 x 2.3 cm, which may represent hepatic abscess or necrotic hepatic tumor.
2. Nonopacification of a peripheral portal branch within the right anterior hepatic lobe, best seen on series 201 images 14-16, likely representing peripheral portal venous thrombosis.
3. 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 Unchanged focal SMA plaque or dissection.
4. Moderate colonic diverticulosis without evidence of diverticulitis
Discussed with IR, for liver biopsy
n.p.o. after midnight
12/08
MRCP.
12/09
MR RI showed:
5.1 cm lesion in the left hepatic lobe with imaging characteristics that would favor a hepatic abscess. Less likely neoplastic in the absence of solid nodular postcontrast enhancement, but a centrally necrotic malignant mass would be the primary
differential consideration. Recommend tissue sampling and/or fluid analysis if percutaneous drainage is elected.
S/p IR abscess drain.
Infectious is consulted.
Will start Rocephin /Flagyl
12/11
Charged home on Ceftin and flagyl
Peripheral portal vein thrombosis
Patient with history of bruises while on baby aspirin
Will wait for liver biopsy
Discussed with GI, no need to treat since it was not seen on MRI
GCA
- prednisone 3mg daily x 1 week
Hypothyroid
- levothyroxine 137 mcg daily
CODE STATUS: Full code
DVT prophylaxis: Lovenox
Diet: Low residual
Disposition: Discharged home on Ceftin and flagyl
Total time spent on today's encounter was 40 minutes which included time spent in counseling the patient/family regarding diagnosis and treatment plan as listed above, goals of care, and symptom management. Case was discussed with nursing staff,
specialists, and care coordinators/case management. All labs and imaging personally reviewed by me. Remainder the time spent in detailed review of previous records, lab data, imaging, and other medical provider documentation.
Anticipated Discharge: Today
Discharge Plan
-
Patient Disposition: Home with Home Care
Discharge Diagnosis/Procedures: Liver abscess
Diet: As tolerated and Low Fat
Activity: As tolerated
Wound Care: flush FLACA drain at home daily w/10ml NSS
Referrals:
Kathy Gutierres MD [Family Provider, Family Practice]
Tiana Sheets MD [Active, Gastroenterology] - in three to four weeks
Russell Flores MD [Active, Radiology] - in less than 1 week
Prescriptions:
New
metronidazole 500 mg Tablet
500 mg PO Q8H 21 Days Qty: 63 0RF
cefuroxime axetil 500 mg tablet
500 mg PO Q12H 21 Days Qty: 42 0RF
sodium chloride 0.9 % (flush) Syringe
10 ml IV DAILY Qty: 300 0RF
Continued
levothyroxine 137 mcg Tablet
137 mcg PO DAILY
calcium carbonate [Calcium 600] 600 mg calcium (1,500 mg) Tablet
600 mg PO BID
cholecalciferol (vitamin D3) [Vitamin D3] 25 mcg (1,000 unit) Tablet
75 mcg PO DAILY
Prolia 60 mg/mL Syringe
60 mg SC [id number]
rosuvastatin 5 mg Tablet
5 mg PO DAILY
Changed
prednisone 1 mg Tablet
2 mg PO DAILY Qty: 0 0RF
Discharge Orders:
Discharge Patient (As Directed); Ordered 12/11/24
Ordered By: Kirill Mariee
Discharge Date and Time
Print Language: ITALIAN
[2024-12-11 14:29] VITALS: BP 121/62
== END 2024-12-11 15:13 | disposition home health service (06) | DRG 871 ==
LOC: 3 WEST ACU 23:22
PROVIDERS: Radiology Vascular & Interventional Radiology; ADMITTING PHYSICIAN Internal Medicine; ATTENDING PHYSICIAN General Practice; CONSULT PHYSICIAN Internal Medicine Gastroenterology; EMERGENCY PHYSICIAN Emergency Medicine; FAMILY PHYSICIAN Family Medicine; OTHER PHYSICIAN Internal Medicine Infectious Disease
PROC: 0F9230Z Drainage of Left Lobe Liver with Drainage Device, Percutaneous Approach (ICD-10-PCS; 2024-12-09)
DX: A41.9 Sepsis, unspecified organism (principal); I77.79 Dissection of other specified artery; K75.0 Abscess of liver; I81 Portal vein thrombosis; N18.30 Chronic kidney disease, stage 3 unspecified; I12.9 Hypertensive chronic kidney disease with stage 1 through stage 4 chronic kidney disease, or unspecified chronic kidney disease; K76.0 Fatty (change of) liver, not elsewhere classified; D72.829 Elevated white blood cell count, unspecified; D72.820 Lymphocytosis (symptomatic); I77.3 Arterial fibromuscular dysplasia; I72.2 Aneurysm of renal artery; M31.6 Other giant cell arteritis; E86.0 Dehydration; K57.30 Diverticulosis of large intestine without perforation or abscess without bleeding; M81.0 Age-related osteoporosis without current pathological fracture; E21.3 Hyperparathyroidism, unspecified; R74.01 Elevation of levels of liver transaminase levels; D69.6 Thrombocytopenia, unspecified; E78.00 Pure hypercholesterolemia, unspecified; E03.9 Hypothyroidism, unspecified; Z60.2 Problems related to living alone; Z85.828 Personal history of other malignant neoplasm of skin; Z79.890 Hormone replacement therapy; Z79.52 Long term (current) use of systemic steroids; Z86.79 Personal history of other diseases of the circulatory system; Z87.891 Personal history of nicotine dependence; Z88.1 Allergy status to other antibiotic agents; Z88.0 Allergy status to penicillin; Z88.2 Allergy status to sulfonamides
CPT/HCPCS: 49405; 74176; 74177; 74183; 80048; 80053; 80076; 81003; 81015; 82105; 83690; 83735; 85025; 85027; 85610; 85730; 86301; 87040; 87070; 87075; 87076; 87086; 87102; 87185; 87205; 87206; 96360; 99152; 99153; 99284; A9575; C1729; C1769; Q9967

== ENCOUNTER → 2024-12-18 10:02 | Outpatient (REF) | payer OTHER, SELFPAY ==
[2024-12-18 10:17] VITALS: BP 113/71; BP_SYST 90
[2024-12-18 10:42] VITALS: BP 112/63; BP_SYST 74
[2024-12-18 10:50] VITALS: BP 112/63
== END ==
LOC: RADI 10:02
PROVIDERS: ATTENDING PHYSICIAN General Practice
DX: Z46.82 Encounter for fitting and adjustment of non-vascular catheter (principal); K75.0 Abscess of liver
CPT/HCPCS: 49424; 76080

== ENCOUNTER 2025-01-23 10:07 | Emergency (ER) | payer OTHER, SELFPAY ==
[2025-01-23 10:10] VITALS: BP 149/102
--- NOTE | 2025-01-23 10:43 | ED.GENMED ---
History of Present Illness
General
Chief Complaint: Headache
Source: patient
Exam Limitations: none
Time Seen by Provider: 01/23/25 10:26
History of Present Illness
History of Present Illness:
79-year-old female with history of temporal arteritis presents with 3 days worth of headache. She describes as similar to what she felt when she had her temporal arteritis. It is frontal in nature with associated light sensitivity and nausea. She
has vomited once. No fever or neck pain. She was on prednisone for an extended period time for her temporal arteritis but developed a liver abscess in November of this year. She was then weaned off the prednisone and has not been on the prednisone for
over a month. No unilateral numbness or weakness. No chest pain or shortness of breath. No other complaints
Past History
Past History
ED Past Medical History: HTN and Other (Cataracts, skin cancer, temporal arteritis)
ED Past Surgical History: Gynecological
Social History
Tobacco: Non-smoker
Personal:
Living: with family
Phy Exam
Physical Exam
Physical Exam:
General: Well-appearing female no acute respiratory distress
HEENT: Normal cephalic atraumatic pupils equal round reactive to light extract motions intact
Heart: Regular rate and rhythm
Lungs: Clear no wheeze
Neurologic exam: Alert and oriented normal gait finger-nose intact no drift
Course
Orders/Labs/Results
Orders:
Orders
01/23/25 10:38
0.9% Sodium Chloride 1000 ml [Nss] 1,000 ml IV BOLUS
Ketorolac [Toradol] 15 mg IV NOW STA
Ondansetron Injectable [Zofran] 4 mg IV NOW STA
01/23/25 10:59
CRP [C-Reactive Protein] Urgent
Complete Blood Count/With Diff Urgent
Comprehensive Metabolic Panel Urgent
Sed Rate [Erythrocyte Sed Rate] Urgent
Abnormal Lab Results
01/23/25
10:59
MCH 33.1 H pg
(27.0-31.0)
Chloride 109 H mmol/L
(98-107)
Alkaline Phosphatase 36 L U/L
(38-126)
01/23/25 10:59
01/23/25 10:59
Vital Signs
Initial and Last Documented VS:
Initial Vital Signs
Temp Pulse Resp BP Pulse Ox
97.7 F 77 16 149/102 98
01/23/25 10:10 01/23/25 10:10 01/23/25 10:10 01/23/25 10:10 01/23/25 10:10
Last Documented Vital Signs
Temp Pulse Resp BP Pulse Ox
97.7 F 70 18 126/68 98
01/23/25 10:10 01/23/25 11:57 01/23/25 11:57 01/23/25 11:57 01/23/25 11:57
MDM/Problems Addressed
Differential Diagnosis Includes:
Headache. History of temporal arteritis. Not currently on any prednisone or autoimmune medications secondary to recent liver abscess. Consider recurrence of temporal arteritis versus migraine versus sinus. No trauma. Neurologically intact.
Will check labs with inflammatory markers treat with Zofran Toradol and fluids.
*Pulse Oximetry
SaO2: 98
Oxygen Mode of Delivery: Room air
Patient hypoxic: no
*Critical Care Note
Total Time (30-74mins, 75-104mins- exclusive of procedures): Not Applicable
Update Note
Update Note:
Patient reevaluated. Labs demonstrate normal inflammatory markers. Patient feeling much better after Toradol Zofran and fluids. Question possible migraine. No fevers to suggest infectious source. Stable for discharge advise follow-up with
doctors
ED Attending Note
-
Portions of this chart may have been created with voice recognition software.� Occasional wrong word or��sound alike� substitutions may have occurred due to the inherent limitations of voice recognition software.
Discharge Plan
Departure
Patient Disposition: Home (Routine Discharge)
Date of Disposition: 01/23/25
Time of Disposition: 13:01
Patient with high blood pressure during this ER visit?: No
Discharge Problem:
Headache
Instructions: Headache, Adult (DC)
Prescriptions:
No Action
levothyroxine 137 mcg Tablet
137 mcg PO DAILY
calcium carbonate [Calcium 600] 600 mg calcium (1,500 mg) Tablet
600 mg PO BID
cholecalciferol (vitamin D3) [Vitamin D3] 25 mcg (1,000 unit) Tablet
75 mcg PO DAILY
Prolia 60 mg/mL Syringe
60 mg SC [id number]
rosuvastatin 5 mg Tablet
5 mg PO DAILY
metronidazole 500 mg Tablet
500 mg PO Q8H 21 Days Qty: 63 0RF
cefuroxime axetil 500 mg tablet
500 mg PO Q12H 21 Days Qty: 42 0RF
sodium chloride 0.9 % (flush) Syringe
10 ml IV DAILY Qty: 300 0RF
prednisone 1 mg Tablet
2 mg PO DAILY Qty: 0 0RF
(DME) Abscessogram/drain check
See Rx Instructions .Route .MEDSUPPLY Qty: 1 0RF
Rx Instructions:
To be done at interventional radiology department after 1 week.
Referrals:
Kathy Gutierres MD [Family Provider, [facility]]
Activity Restrictions/Additional Instructions:
Please return here for worsening symptoms. Follow-up with your doctors otherwise. Rest and stay hydrated
Interventions
Interventions:
*Risk Screen - Suicide Last Done: 01/23/25 10:10
*Neglect/Abuse Screening Last Done: 01/23/25 10:10
ED- Neurological Assessment Last Done: 01/23/25 10:52
Discharge Date and Time
Print Language: DANISH
[2025-01-23] MEDS: TORADOL 15 MG IV (10:57)
[2025-01-23] MEDS: NSS 1000 IV (10:58)
[2025-01-23] MEDS: ZOFRAN 4 MG IV (10:58)
[2025-01-23 11:07] VITALS: BMI 24.9
[2025-01-23 11:15] LABS: Hematocrit 41.9 % (37.0-47.0); Hemoglobin 14.4 g/dL (12.0-16.0); Mean Corp Hgb Conc. 34.4 g/dL (33.0-37.0); Mean Corpuscular Volume 96.3 fL (81.0-99.0); Nucleated Red Blood Cells % 0 %; Platelet Count 250 10^3/uL (130-400); Red Cell Dist. Width 12.9 % (11.5-14.5)
[2025-01-23 11:38] LABS: ALT (SGPT) 19 U/L (0-35); AST (SGOT) 22 U/L (14-36); Albumin 4.2 g/dl (3.5-5.0); Alkaline Phosphatase 36 U/L (38-126); Blood Urea Nitrogen 15 mg/dl (7-17); Calcium 9.3 mg/dl (8.4-10.2); Carbon Dioxide 24 mmol/L (22-30); Chloride 109 mmol/L (98-107); Estimated Creatinine Clearance 38 ml/min; Glucose 90 mg/dl (70-99); Potassium 4.3 mmol/L (3.5-5.1); Sodium 138 mmol/L (135-145); Total Protein 6.3 g/dl (6.3-8.2); eGFR > 60.00
[2025-01-23 11:42] LABS: C-Reactive Protein < 5.00 mg/L (0.0-10.00)
[2025-01-23 11:57] VITALS: BP 126/68
== END 2025-01-23 13:45 | disposition home or self-care (01) ==
LOC: EMR 10:07
PROVIDERS: Physician Assistant; EMERGENCY PHYSICIAN Emergency Medicine; FAMILY PHYSICIAN Family Medicine
DX: R51.9 Headache, unspecified (principal); I10 Essential (primary) hypertension; Z85.828 Personal history of other malignant neoplasm of skin
CPT/HCPCS: 96374; 96375; 96361; 99284; 80053; 85025; 85652; 86140

== ENCOUNTER → 2025-02-08 14:42 | Outpatient (REF) | payer OTHER, SELFPAY | LOC: HWRAD 14:42 | PROVIDERS: ATTENDING PHYSICIAN Family Medicine; REFERRING PHYSICIAN Internal Medicine Gastroenterology | DX: K75.0 Abscess of liver (principal) | CPT/HCPCS: 76700 ==

== ENCOUNTER → 2025-03-16 15:07 | Outpatient (REF) | payer OTHER, SELFPAY | LOC: RAD 15:07 | PROVIDERS: ATTENDING PHYSICIAN Registered Nurse; FAMILY PHYSICIAN Family Medicine | DX: H53.2 Diplopia (principal); H51.8 Other specified disorders of binocular movement | CPT/HCPCS: 70470; 70482; Q9967 ==

== ENCOUNTER → 2025-04-06 14:54 | Outpatient (REF) | payer OTHER, SELFPAY | LOC: WDC 14:54 | PROVIDERS: ATTENDING PHYSICIAN Family Medicine | DX: Z12.31 Encounter for screening mammogram for malignant neoplasm of breast (principal) | CPT/HCPCS: 77063; 77067 ==

== ENCOUNTER 2025-05-21 06:22 | Day surgery (SDC) | payer OTHER, SELFPAY | END 2025-05-21 14:17 | disposition home or self-care (01) | LOC: GI 06:22 | PROVIDERS: ATTENDING PHYSICIAN Internal Medicine Gastroenterology; FAMILY PHYSICIAN Family Medicine | DX: Z12.11 Encounter for screening for malignant neoplasm of colon (principal); D12.3 Benign neoplasm of transverse colon; K63.5 Polyp of colon; K57.30 Diverticulosis of large intestine without perforation or abscess without bleeding; R11.14 Bilious vomiting; K56.2 Volvulus; Q43.8 Other specified congenital malformations of intestine | CPT/HCPCS: 45385; 88305 ==